=== PATIENT | female | born 1930 | race Caucasian/White ===

== ENCOUNTER 2018-10-11 15:43 | Observation (INO) ==
[2018-10-11] MEDS ORDERED: VANCOMYCIN HCL 1 GM VIAL ONE (16:39)
[2018-10-11] MEDS ORDERED: NS 250 ML IV 250 ML IV ONE (16:39)
[2018-10-11] MEDS ORDERED: ATARAX TAB 25 MG PO ONE (16:40)
[2018-10-11] MEDS: VANCOMYCIN HCL 1 GM VIAL 1 G in D5W 250 ML IV 250 ML IV SCH ×2 (16:52→21:23)
[2018-10-11] MEDS: ATARAX TAB 25 MG PO PRN (16:52)
--- NOTE | 2018-10-11 17:43 | RAD ---
HISTORY: Allergic reaction. Study: Portable chest. Comparison: Chest x-ray dated September 17, 2018. Findings: Study limited secondary to the lung apices off the field of view The trachea is midline. The cardiac silhouette is unremarkable. Calcified mediastinal/hilar lymph nodes and calcified bilateral pulmonary nodules consistent with old granulomatous disease. Chronic emphysematous changes. No obvious focal consolidation, pleural effusion, or pneumothorax. The bony thorax is unremarkable. IMPRESSION: No acute cardiopulmonary disease on this limited study. Reported By:
[2018-10-11 17:59] VITALS: BMI 27.8
[2018-10-11 18:49] LABS: BILIRUBIN,URINE NEGATIVE (NEGATIVE); BLOOD/HEMOGLOBIN,URINE 2+ (NEGATIVE); GLUCOSE, URINE NEGATIVE (NEGATIVE); KETONES,URINE NEGATIVE (NEGATIVE); LEUKOCYTE ESTERASE ,URINE NEGATIVE (NEGATIVE); NITRITES,URINE NEGATIVE (NEGATIVE); PROTEIN,URINE NEGATIVE (NEGATIVE); UROBILINOGEN,URINE NORMAL (NORMAL)
[2018-10-11 18:58] LABS: APPEARANCE,URINE CLEAR (CLEAR); COLOR,URINE YELLOW (YELLOW); RBC,URINE 0-2 /HPF (NONE SEEN); SQUAMOUS EPITHELIAL CELL,UR FEW /HPF (NEGATIVE)
[2018-10-11 18:59] LABS: BACTERIA,URINE NEGATIVE /HPF (NEGATIVE)
[2018-10-12] MEDS: ATARAX TAB 25 MG PO PRN ×2 (01:00→11:10)
[2018-10-12] MEDS ORDERED: ATARAX TAB 25 MG PO ONE (02:25)
[2018-10-12 06:17] LABS: BASOPHILS # (AUTO) 0.1 X10^3/uL (0.0-0.1); BASOPHILS % (AUTO) 0.7 % (0.2-1.0); EOSINOPHILS # (AUTO) 0.1 x10^3/uL (0.0-0.2); HEMOGLOBIN 12.3 g/dL (12.0-16.0); LYMPHOCYTES # (AUTO) 3.2 X10^3/uL (1.3-2.9); MEAN CORPUSCULAR HEMOGLOBIN 35.1 pg (27.0-34.0); MEAN CORPUSCULAR HGB CONC 34.3 g/dL (33.0-35.0); MEAN CORPUSCULAR VOLUME 102.3 fL (80.0-100.0); MEAN PLATELET VOLUME 8.2 fL (7.4-11.0); MONOCYTES # (AUTO) 0.6 x10^3/uL (0.3-0.8); MONOCYTES % (AUTO) 5.8 % (0.0-13.0); NEUTROPHILS % (AUTO) 60.5 % (42.0-75.0); PLATELET COUNT 195 X10^3/uL (150.0-450.0); RED BLOOD COUNT 3.52 X10^6/uL (3.5-5.4); RED CELL DISTRIBUTION WIDTH 14.6 % (11.6-16.5); WHITE BLOOD COUNT 9.9 X10^3/uL (3.6-10.0)
[2018-10-12 06:59] LABS: ALANINE AMINOTRANSFERASE 18 Units/L (12-78); ALBUMIN 3.5 g/dL (3.4-5.0); ALKALINE PHOSPHATASE 93 Units/L (46-116); ASPARTATE AMINO TRANSFERASE 24 Units/L (15-37); BLOOD UREA NITROGEN 29 mg/dL (7-18); CALCIUM 9.4 mg/dL (8.5-10.1); CARBON DIOXIDE 28.2 mmol/L (21-32); CHLORIDE 108 mmol/L (98-107); CREATININE 1.06 mg/dL (0.55-1.02); SODIUM 144 mmol/L (136-145); TOTAL PROTEIN 7.4 g/dL (6.4-8.2); eGFR NON BLACK RACES 52 (>60)
[2018-10-12] MEDS ORDERED: NORCO 5/325 MG TAB ONE (10:07)
[2018-10-12] MEDS: VANCOMYCIN HCL 1 GM VIAL 1 G in D5W 250 ML IV 250 ML IV SCH (10:14)
[2018-10-12] MEDS ORDERED: NORCO 5/325 MG TAB PO ONE (10:30)
[2018-10-12 12:26] VITALS: BP 143/63
--- NOTE | 2018-10-23 18:58 | DR.CARTERS ---
Short Stay Summary - Short Stay Summary for: Short Stay Summary for Date of:: 10/11/18 - Admission Date Date of Admission: 10/11/18 - Discharge Date Discharge Date: 10/12/18 - Admission Diagnoses (1) Cellulitis Status: Acute (2) Rash Status: Acute - Hospital Course Hospital Course: THE PATIENT IS AN 8/6YO FEMALE RESIDENT OF [place] WHO WAS NOTED TO HAVE RASH WITH ERYTHEMA TO CHEST AND BILATERAL ARMS. COMPLAINED OF ITCHING AT SITE. PATIENT ADMITTED FOR IV ANTIBIOTICS. VANCOMYCIN GIVEN. IV DID INFILTRATE AND PATIENT REQUESTED PO ANTIBIOTIC. PATIENT LABS WERE STABLE. PATIENT DISCHARGED BACK TO [place]. - Discharge Medications Discharge Medications: Home Medication List Refresh Tears 1 drp OPHTHALMIC (EYE) TID 10/11/18 [History] alprazolam [Xanax] 0.25 mg PO DAILY 10/11/18 [History] cyanocobalamin (vitamin B-12) 1,000 mcg IM QMONTH 10/11/18 [History] fluticasone [Flonase Allergy Relief] 1 spray INTRANASAL QDAY 10/11/18 [History] gabapentin 100 mg PO QDAY 10/11/18 [History] gabapentin 200 mg PO HS 10/11/18 [History] hydroxyzine HCl 25 mg PO TID 10/11/18 [History] isosorbide mononitrate 5 mg PO BID 10/11/18 [History] lactulose [Constulose] 15 ml PO DAILY 10/11/18 [History] levothyroxine [Synthroid] 75 mcg PO QDAY 10/11/18 [History] loratadine [Claritin] 10 mg PO QDAY 10/11/18 [History] melatonin 10 mg PO HS 10/11/18 [History] trazodone 25 mg PO HS 10/11/18 [History] hydrocodone-acetaminophen [[place]] 1 tab PO TID PRN #30 tab 10/12/18 [Rx] mineral oil-hydrophil petrolat [Aquaphor] 1 applic TOPICAL QID 14 Days g 10/12/18 [Rx] mupirocin calcium [Bactroban] 1 applic TOPICAL QID 14 Days g 10/12/18 [Rx] Prescriptions: hydrocodone-acetaminophen [[place]] JUAN NUNEZ mineral oil-hydrophil petrolat [Aquaphor] RABIA RICO mupirocin calcium [Bactroban] RABIA RICO - Discharge Plan Disposition: 03 XFER SNF Condition: Stable Prescriptions: hydrocodone-acetaminophen [[place]] 1 tab PO TID PRN #30 tab PRN Reason: Pain mineral oil-hydrophil petrolat [Aquaphor] 1 applic TOPICAL QID 14 Days g mupirocin calcium [Bactroban] 1 applic TOPICAL QID 14 Days g - Follow up/Referrals Follow up/Referrals: [facility] [Outside] JUAN NUNEZ [Primary Care Provider] - - Instructions
== END 2018-10-12 12:30 ==
LOC: MED/SURG 16:25 → INTOOBSV 16:25
PROVIDERS: ADMIT Internal Medicine; ATTEND Internal Medicine
DX: R21 Rash and other nonspecific skin eruption; L03.90 Cellulitis, unspecified; Z79.899 Other long term (current) drug therapy; L01.09 Other impetigo
CPT/HCPCS: 36415; 71010; 71045; 80053; 81001; 85025; 87086; 96367; 96374; 99217; G0378; J3370; J7050; J7060

== ENCOUNTER 2019-10-20 21:10 | Inpatient (IN) ==
[~2019-10-20 21:10] MED LIST: MONOKET or IMDUR PO ONE
--- NOTE | 2019-10-20 21:32 | DR.WEAKNES ---
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 - Reviewed Nurses Notes Reviewed: Yes - Source History Provided: Patient, Senior Living - Mode of Arrival Mode of Arrival: Stretcher - Timing Onset of Chief Complaint: 10/20/19 Since onset, symptoms are:: Unchanged Symptom Onset: Unknown Onset of Symptoms Start Date: 10/20/19 - Duration Duration: Constant Duration: Hours - Context Onset: Spontaneous Symptoms: Weakness, Slurred Speech History of: None Stroke Symptoms: None - Location Weakness Location: Left, Facial PMH - PMH Past Medical History: Yes Past Medical History: Anemia, Anxiety, Hypertension, Hypothyroidism Past Surgical History: Yes Surgical History: Appendectomy, Cholecystectomy, Hysterectomy - Family History History of Family Medical Conditions: No Family Medical History: Heart Failure, Hypertension - Social History Type of Tobacco Use: None (Hx fibromyalgia) Do you use any recreational Drugs:: No - infectious screening In the last 2 months have you had wt loss of >10#?: NO Have you had fever, night sweats or hemotysis?: No Have you traveled outside the country in the last 6 months?: No Isolation: Standard ROS - Review of Systems Constitutional: Weakness (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) Eyes: No Symptoms Reported ENTM: See HPI Respiratoy: Non-Productive Cough Cardiovascular: No Symptoms Reported Gastrointestinal/Abdominal: No Symptoms Reported Genitourinary: No Symptoms Reported Neurological: Speech Problem, Other (left community service patrol officer weakness) Musculoskeletal: No Symptoms Reported Integumentary: No Symptoms Reported Hematologic/Lymphatic: No Symptoms Reported Endocrine: No Symptoms Reported Psychiatric: Anxiety PE - General Limitations: Physical Limitation General Appearance: Alert, In No Apparent Distress - Head Head Exam: Normal Inspection - Eyes Eye exam: Normal Appearance, EOMI Eyelids: Normal Inspection: Bilateral Pupils: Regular, Round: Bilateral Sclera/Conjunctival: Normal Inspection: Bilateral - ENT Mouth Exam: Other (facial droop) Throat Exam: Normal Inspection - Neck Neck Exam: Normal Inspection - Chest Chest Inspection: Normal Inspection - Respiratory Respiratory Exam: Normal Lung Sounds Bilat. negative: Accessory Muscle Use Respiratory Exam: Bilateral Clear to Auscultation - Cardiovascular Cardiovascular Exam: Regular Rate - Abdominal Exam Abdominal Exam: Normal Inspection, Normal Bowel Sounds, Soft, Hernia - Extremities Extremities Exam: Normal Inspection, Full ROM - Back Back Exam: Normal Inspection - Neurologic Neurological Exam: Alert, Other (facial droop) Patient Oriented To: Person Speech: Other (speech difficulty) Cranial Nerve Exam: EOM Function (II, III, IV, ): Normal, Gag reflex (XI): Normal - Psychiatric Psychiatric Exam: Depressed, Anxious - Skin Skin Exam: Intact, Normal Color - Vital Signs Vitals: Pulse Rate 87 Respiratory Rate 12 Blood Pressure [Left Arm] 109/72 Blood Pressure 110/58 O2 Sat by Pulse Oximetry 99 Course - Consultation Called: 23:20 Call Returned: 23:20 Consultation Comments: Case discusssed with DR. Santana betts for IVF and MRI. ROR - Labs Reviewed Result Diagrams: 10/20/19 21:51 10/21/19 05:30 - XRAY XRAY Interpreted by: Radiologist (Chest: CMG and findings consistent with COPD) XRAY Findings: CT head: diffuse cerebral atrophy, right maxillary sinusitus - EKG Compared to prior EKG Dated: 10/18/19 (inchanged) Rate: 84 [place]: Normal Rhythm: NSR Hypertrophy: None ST: Nonsp (artifact in 3 leads) - Labs Reviewed Laboratory: WBC 11.3 X10^3/uL (3.6-10.0) H 10/20/19 21:51 RBC 3.28 X10^6/uL (3.5-5.4) L 10/20/19 21:51 Hgb 11.2 g/dL (12.0-16.0) L 10/20/19 21:51 Hct 33.7 % (36.0-47.0) L 10/20/19 21:51 MCV 102.7 fL (80.0-100.0) H 10/20/19 21:51 MCH 34.1 pg (27.0-34.0) H 10/20/19 21:51 MCHC 33.2 g/dL (33.0-35.0) 10/20/19 21:51 RDW 16.4 % (11.6-16.5) 10/20/19 21:51 Plt Count 97 X10^3/uL (150.0-450.0) L 10/20/19 21:51 Plt Count Comment Decreased (ADEQUATE) A 10/20/19 21:51 MPV 11.3 fL (7.4-11.0) H 10/20/19 21:51 Neut % (Auto) 74.9 % (42.0-75.0) 10/20/19 21:51 Lymph % (Auto) 11.2 % (21.0-51.0) L 10/20/19 21:51 [place] % (Auto) 5.5 % (0.0-13.0) 10/20/19 21:51 Eos % (Auto) 8.1 % (0.9-2.9) H 10/20/19 21:51 Baso % (Auto) 0.3 % (0.2-1.0) 10/20/19 21:51 Neut # (Auto) 8.5 x10^3/uL (2.2-4.8) H 10/20/19 21:51 Lymph # (Auto) 1.3 X10^3/uL (1.3-2.9) 10/20/19 21:51 [place] # (Auto) 0.6 x10^3/uL (0.3-0.8) 10/20/19 21:51 Eos # (Auto) 0.9 x10^3/uL (0.0-0.2) H 10/20/19 21:51 Baso # (Auto) 0.0 X10^3/uL (0.0-0.1) 10/20/19 21:51 Absolute Nucleated RBC 0.1 /100WBC 10/20/19 21:51 Total Counted 100 10/20/19 21:51 Neutrophils % (Manual) 68 % (39-76) 10/20/19 21:51 Band Neutrophils % 15 % (0-10) H 10/20/19 21:51 Lymphocytes % (Manual) 9 % (13-43) L 10/20/19 21:51 Monocytes % (Manual) 8 % (4-9) 10/20/19 21:51 Plt Morphology Comment Normal (NORMAL) 10/20/19 21:51 RBC Morphology Normal (NORMAL) 10/20/19 21:51 PT 14.0 SECONDS (11.8-14.3) 10/20/19 21:51 INR Target Range - 10/20/19 21:51 INR 1.12 (0.8-1.3) 10/20/19 21:51 APTT 58.5 SECONDS (22.9-36.5) H 10/20/19 21:51 PTT Comment - 10/20/19 21:51 Sodium 139 mmol/L (136-145) 10/20/19 21:51 Corrected Sodium TNP 10/20/19 21:51 Potassium 5.5 mmol/L (3.5-5.1) H 10/20/19 21:51 Chloride 102 mmol/L (98-107) 10/20/19 21:51 Carbon Dioxide 26.4 mmol/L (21-32) 10/20/19 21:51 BUN 80 mg/dL (7-18) H 10/20/19 21:51 Creatinine 4.84 mg/dL (0.55-1.02) H 10/20/19 21:51 Est GFR (MDRD) Af Amer 11 (>60) L 10/20/19 21:51 Est GFR (MDRD) Non-Af 9 (>60) L 10/20/19 21:51 Glucose 102 mg/dL (65-99) H 10/20/19 21:51 Calcium 8.5 mg/dL (8.5-10.1) 10/20/19 21:51 Corrected Calcium 9.8 mg/dL (8.5-10.1) 10/20/19 21:51 Total Bilirubin 0.80 mg/dL (0.2-1.0) 10/20/19 21:51 AST 72 Units/L (15-37) H 10/20/19 21:51 ALT 23 Units/L (12-78) 10/20/19 21:51 Alkaline Phosphatase 170 Units/L (46-116) H 10/20/19 21:51 Total Protein 6.6 g/dL (6.4-8.2) 10/20/19 21:51 Albumin 2.4 g/dL (3.4-5.0) L 10/20/19 21:51 Globulin 4.2 g/dL (2.5-4.5) 10/20/19 21:51 Albumin/Globulin Ratio 0.6 Ratio (1.1-2.1) L 10/20/19 21:51 Opioid - Opioid Risk Tool Age (Emanuel box if 16-45): No History of Preadolescent Sexual Abuse: No Total: 0 Total Score Risk Category: Low Risk - Diagnosis Discharge Problem: CVA (cerebral vascular accident) Qualifiers: CVA mechanism: unspecified Qualified Code(s): I63.9 - Cerebral infarction, unspecified - Discharge Plan Disposition: 09 ADMITTED INPATIENT Condition: Stable
[2019-10-20 21:57] LABS: BASOPHILS % (AUTO) 0.3 % (0.2-1.0); EOSINOPHILS # (AUTO) 0.9 x10^3/uL (0.0-0.2); EOSINOPHILS % (AUTO) 8.1 % (0.9-2.9); HEMATOCRIT 33.7 % (36.0-47.0); HEMOGLOBIN 11.2 g/dL (12.0-16.0); LYMPHOCYTES # (AUTO) 1.3 X10^3/uL (1.3-2.9); LYMPHOCYTES % (AUTO) 11.2 % (21.0-51.0); MEAN CORPUSCULAR HEMOGLOBIN 34.1 pg (27.0-34.0); MEAN CORPUSCULAR HGB CONC 33.2 g/dL (33.0-35.0); MEAN CORPUSCULAR VOLUME 102.7 fL (80.0-100.0); MEAN PLATELET VOLUME 11.3 fL (7.4-11.0); MONOCYTES # (AUTO) 0.6 x10^3/uL (0.3-0.8); MONOCYTES % (AUTO) 5.5 % (0.0-13.0); NEUTROPHILS # (AUTO) 8.5 x10^3/uL (2.2-4.8); NEUTROPHILS % (AUTO) 74.9 % (42.0-75.0); PLATELET COUNT 97 X10^3/uL (150.0-450.0); RED BLOOD COUNT 3.28 X10^6/uL (3.5-5.4); RED CELL DISTRIBUTION WIDTH 16.4 % (11.6-16.5); WHITE BLOOD COUNT 11.3 X10^3/uL (3.6-10.0)
[2019-10-20 22:10] LABS: ALANINE AMINOTRANSFERASE 23 Units/L (12-78); ALBUMIN 2.4 g/dL (3.4-5.0); ALKALINE PHOSPHATASE 170 Units/L (46-116); ASPARTATE AMINO TRANSFERASE 72 Units/L (15-37); BLOOD UREA NITROGEN 80 mg/dL (7-18); CALCIUM 8.5 mg/dL (8.5-10.1); CARBON DIOXIDE 26.4 mmol/L (21-32); CHLORIDE 102 mmol/L (98-107); COR CA(FOR HYPOALB) 9.8 mg/dL (8.5-10.1); CREATININE 4.84 mg/dL (0.55-1.02); SODIUM 139 mmol/L (136-145); TOTAL PROTEIN 6.6 g/dL (6.4-8.2); eGFR NON BLACK RACES 9 (>60)
[2019-10-20 22:20] LABS: BAND NEUTROPHILS % 15 % (0-10); PLATELET MORPHOLOGY COMMENT NORMAL (NORMAL)
--- NOTE | 2019-10-20 22:28 | CT ---
HISTORYspeech difficulty, left manager psychology weaknessSTUDYBRAIN W/O [id number]/27/2019TECHNIQUEMultiple helical images of the brain from the vertex to the occiput were obtained. Coronal and sagittal reformats were performed. Dose reduction techniques including Automated Exposure Control (AEC) and adjustment of mA and kV were utilized.FINDINGSThere is moderate diffuse cerebral cortical atrophy with bilateral periventricular and deep white matter hypoattenuation, findings are nonspecific; however, most likely represent sequela of chronic microvascular disease.[No acute intraparenchymal hemorrhage or mass can be identified.] [No extra-axial fluid collections are seen.] [No alteration in the attenuation of the brain parenchyma can be identified to suggest acute or subacute ischemic change.] [The ventricular system is symmetric and nondilated.] [The extracranial structures are grossly unremarkable.]Moderate right maxillary sinus mucosal thickening with inspissated secretions.IMPRESSIONNo acute intracranial process identified.Stable moderate diffuse cerebral cortical atrophy with bilateral periventricular and deep white matter hypoattenuation, findings are nonspecific; however, most likely represent sequela of chronic microvascular disease.Moderate right maxillary sinus mucosal disease likely in setting of chronic sinusitis.Electronically signed by: EDOUARD WU (Oct 20, 2019 22:26:56)
[2019-10-20] MEDS ORDERED: NS 500 ML IV 500 ML IV ONE ×2 (22:41→23:08)
[2019-10-20 23:38] LABS: BILIRUBIN,URINE 1+ (NEGATIVE); BLOOD/HEMOGLOBIN,URINE 5+ (NEGATIVE); GLUCOSE, URINE NEGATIVE (NEGATIVE); KETONES,URINE NEGATIVE (NEGATIVE); LEUKOCYTE ESTERASE ,URINE 1+ (NEGATIVE); NITRITES,URINE NEGATIVE (NEGATIVE); PROTEIN,URINE 1+ (NEGATIVE); UROBILINOGEN,URINE 1+ (NORMAL)
[2019-10-20 23:45] LABS: APPEARANCE,URINE CLEAR (CLEAR); BACTERIA,URINE NEGATIVE /HPF (NEGATIVE); COLOR,URINE AMBER (YELLOW); RBC,URINE 30-50 /HPF (0-3); SQUAMOUS EPITHELIAL CELL,UR RARE /HPF (NEGATIVE)
[2019-10-21 01:35] VITALS: BMI 27.1
[2019-10-21] MEDS ORDERED: PHARMACY CONSULT LTC MEDICATIONS XX SCH (02:00)
--- NOTE | 2019-10-21 03:02 | RAD ---
HISTORYcough, lethargic, hypotensionSTUDYCHEST, 1 [id number]/27/2019FINDINGSThe trachea is midline. The cardiac silhouette is image enlarged, unchanged. Chronic interstitial opacities are noted. Calcified granuloma noted within both lung bases. No pleural effusion or pneumothorax.[ ]IMPRESSIONNo change from prior examination demonstrating persistent cardiomegaly and chronic interstitial lung changes without acute airspace disease or CHF.Electronically signed by: EDOUARD WU (Oct 21, 2019 03:00:47)
[2019-10-21 06:34] LABS: ALANINE AMINOTRANSFERASE 25 Units/L (12-78); ALBUMIN 2.1 g/dL (3.4-5.0); ALKALINE PHOSPHATASE 143 Units/L (46-116); ASPARTATE AMINO TRANSFERASE 86 Units/L (15-37); BLOOD UREA NITROGEN 84 mg/dL (7-18); CARBON DIOXIDE 25.6 mmol/L (21-32); CHLORIDE 104 mmol/L (98-107); COR CA(FOR HYPOALB) 9.5 mg/dL (8.5-10.1); CREATININE 4.78 mg/dL (0.55-1.02); SODIUM 141 mmol/L (136-145); TOTAL PROTEIN 5.9 g/dL (6.4-8.2); eGFR NON BLACK RACES 9 (>60)
--- NOTE | 2019-10-21 09:16 | DR.H&P ---
H&P History & Physical for Day of: H&P Date: 10/21/19 Chief Complaint Chief Complaint: Lethargy, Left facial droop Allergies Allergies Allergy/AdvReac Type Severity Reaction Status Date / Time ceftriaxone [From Rocephin] Allergy Verified 10/21/19 01:51 cephalexin [From Keflex] Allergy Verified 12/10/18 19:05 Cephalosporins Allergy Verified 10/21/19 01:51 levofloxacin [From Levaquin] Allergy Verified 12/10/18 19:05 Penicillins Allergy Verified 12/10/18 19:05 Sulfa (Sulfonamide Allergy Verified 12/10/18 19:05 Antibiotics) [SULFA] History of Present Illness History of Present Illness: Pt is a 89 yo f presenting from alf after being noticed by staff that she was lethargic, with slurred speech, left facial droop, left sided weakness, AOx1 to person, that was also noted in ED. Initial CT did not have any acute findings. Labs:Wbc 12.7, Hgb 11.2, Plt 156, K 5.5, Cr 4.84, AST 72, CXR:no acute findings, UA not c/w infection. Will get MRI, Echo, Carotid Doppler, PT/OT/ST to evaluate for possible stroke. Pt also has acute on chronic renal failure, continue IVF. Monitor electrolytes. Past Medical History Past Medical History: Anemia, Anxiety, Hypertension and Hypothyroidism Past Surgical History Surgical History: Appendectomy, Cholecystectomy and Hysterectomy Family History Family Medical History: Heart Failure and Hypertension Social History Type of Tobacco Use: None (Hx fibromyalgia) Alcohol Use: None Drug Use: None Medications Home Medications: ceftriaxone [From Rocephin] Allergy (Verified 10/21/19 01:51) cephalexin [From Keflex] Allergy (Verified 12/10/18 19:05) Cephalosporins Allergy (Verified 10/21/19 01:51) levofloxacin [From Levaquin] Allergy (Verified 12/10/18 19:05) Penicillins Allergy (Verified 12/10/18 19:05) Sulfa (Sulfonamide Antibiotics) [SULFA] Allergy (Verified 12/10/18 19:05) CONTINUE taking the following medications azelastine 1 spray INTRANASAL TID 10/21/19 [History] diphenhydramine HCl [Benadryl Allergy] 25 mg PO Q24H PRN 10/21/19 [History] hydrocodone-acetaminophen [[place]] 1 tab PO Q8H PRN 10/21/19 [History] levothyroxine 88 mcg PO DAILY 10/21/19 [History] mirabegron [Myrbetriq] 25 mg PO DAILY 10/21/19 [History] montelukast [Singulair] 10 mg PO DAILY 10/21/19 [History] multivitamin with minerals [Multiple Vitamin-Minerals] 1 tab PO BID 10/21/19 [History] pregabalin [Lyrica] 100 mg PO BID 10/21/19 [History] sertraline 25 mg PO DAILY 10/21/19 [History] Labs Result Diagrams: 10/20/19 21:51 10/21/19 05:30 Labs: Laboratory WBC 11.3 X10^3/uL (3.6-10.0) H 10/20/19 21:51 RBC 3.28 X10^6/uL (3.5-5.4) L 10/20/19 21:51 Hgb 11.2 g/dL (12.0-16.0) L 10/20/19 21:51 Hct 33.7 % (36.0-47.0) L 10/20/19 21:51 MCV 102.7 fL (80.0-100.0) H 10/20/19 21:51 MCH 34.1 pg (27.0-34.0) H 10/20/19 21:51 MCHC 33.2 g/dL (33.0-35.0) 10/20/19 21:51 RDW 16.4 % (11.6-16.5) 10/20/19 21:51 Plt Count 97 X10^3/uL (150.0-450.0) L 10/20/19 21:51 Plt Count Comment Decreased (ADEQUATE) A 10/20/19 21:51 MPV 11.3 fL (7.4-11.0) H 10/20/19 21:51 Neut % (Auto) 74.9 % (42.0-75.0) 10/20/19 21:51 Lymph % (Auto) 11.2 % (21.0-51.0) L 10/20/19 21:51 [place] % (Auto) 5.5 % (0.0-13.0) 10/20/19 21:51 Eos % (Auto) 8.1 % (0.9-2.9) H 10/20/19 21:51 Baso % (Auto) 0.3 % (0.2-1.0) 10/20/19 21:51 Neut # (Auto) 8.5 x10^3/uL (2.2-4.8) H 10/20/19 21:51 Lymph # (Auto) 1.3 X10^3/uL (1.3-2.9) 10/20/19 21:51 [place] # (Auto) 0.6 x10^3/uL (0.3-0.8) 10/20/19 21:51 Eos # (Auto) 0.9 x10^3/uL (0.0-0.2) H 10/20/19 21:51 Baso # (Auto) 0.0 X10^3/uL (0.0-0.1) 10/20/19 21:51 Absolute Nucleated RBC 0.1 /100WBC 10/20/19 21:51 Total Counted 100 10/20/19 21:51 Neutrophils % (Manual) 68 % (39-76) 10/20/19 21:51 Band Neutrophils % 15 % (0-10) H 10/20/19 21:51 Lymphocytes % (Manual) 9 % (13-43) L 10/20/19 21:51 Monocytes % (Manual) 8 % (4-9) 10/20/19 21:51 Plt Morphology Comment Normal (NORMAL) 10/20/19 21:51 RBC Morphology Normal (NORMAL) 10/20/19 21:51 PT 14.0 SECONDS (11.8-14.3) 10/20/19 21:51 INR Target Range - 10/20/19 21:51 INR 1.12 (0.8-1.3) 10/20/19 21:51 APTT 58.5 SECONDS (22.9-36.5) H 10/20/19 21:51 PTT Comment - 10/20/19 21:51 Sodium 141 mmol/L (136-145) 10/21/19 05:30 Corrected Sodium TNP 10/21/19 05:30 Potassium 4.7 mmol/L (3.5-5.1) 10/21/19 05:30 Chloride 104 mmol/L (98-107) 10/21/19 05:30 Carbon Dioxide 25.6 mmol/L (21-32) 10/21/19 05:30 BUN 84 mg/dL (7-18) H 10/21/19 05:30 Creatinine 4.78 mg/dL (0.55-1.02) H 10/21/19 05:30 Est GFR (MDRD) Af Amer 11 (>60) L 10/21/19 05:30 Est GFR (MDRD) Non-Af 9 (>60) L 10/21/19 05:30 Glucose 82 mg/dL (65-99) 10/21/19 05:30 Calcium 8.0 mg/dL (8.5-10.1) L 10/21/19 05:30 Corrected Calcium 9.5 mg/dL (8.5-10.1) 10/21/19 05:30 Total Bilirubin 0.70 mg/dL (0.2-1.0) 10/21/19 05:30 AST 86 Units/L (15-37) H 10/21/19 05:30 ALT 25 Units/L (12-78) 10/21/19 05:30 Alkaline Phosphatase 143 Units/L (46-116) H 10/21/19 05:30 Total Protein 5.9 g/dL (6.4-8.2) L 10/21/19 05:30 Albumin 2.1 g/dL (3.4-5.0) L 10/21/19 05:30 Globulin 3.8 g/dL (2.5-4.5) 10/21/19 05:30 Albumin/Globulin Ratio 0.6 Ratio (1.1-2.1) L 10/21/19 05:30 Specimen Type Catherized urine 10/20/19 23:25 Urine Color M[place] (YELLOW) 10/20/19 23:25 Urine Appearance Clear (CLEAR) 10/20/19 23:25 Urine pH 5.0 (5.0 - 8.0) 10/20/19 23:25 Ur Specific [place] 1.015 (1.000-1.030) 10/20/19 23:25 Urine Protein 1+ (NEGATIVE) 10/20/19 23:25 Urine Glucose (UA) Negative (NEGATIVE) 10/20/19 23:25 Urine Ketones Negative (NEGATIVE) 10/20/19 23:25 Urine Occult Blood 5+ (NEGATIVE) 10/20/19 23:25 Urine Nitrite Negative (NEGATIVE) 10/20/19 23:25 Urine Bilirubin 1+ (NEGATIVE) 10/20/19 23:25 Urine Urobilinogen 1+ (NORMAL) 10/20/19 23:25 Ur Leukocyte Esterase 1+ (NEGATIVE) 10/20/19 23:25 Urine RBC 30-50 /HPF (0-3) A 10/20/19 23:25 Urine WBC 0-2 /HPF (0-5) 10/20/19 23:25 Ur Squamous Epith Cells Rare /HPF (NEGATIVE) 10/20/19 23:25 Urine Bacteria Negative /HPF (NEGATIVE) 10/20/19 23:25 Ur Culture Indicated? No/not indicated 10/20/19 23:25 Review of Systems Constitutional: denies Fever and Chills Eyes: No Symptoms Reported ENT: No Symptoms Reported Respiratory: No Symptoms Reported Cardiovascular: No Symptoms Reported Gastrointestinal: No Symptoms Reported Genitourinary: No Symptoms Reported Musculoskeletal: Other (Generalized, hx of fibromyalgia) Skin: No Symptoms Reported Neurological: See HPI, Weakness (Left facial droop), Change in Speech (slurred) and Confusion (AOx1, to person) Physical Exam Vital Signs: Temperature 98.1 F Pulse Rate [Left Brachial] 78 Pulse Rate 87 Respiratory Rate 18 Blood Pressure [Left Arm] 93/54 Blood Pressure 110/58 O2 Sat by Pulse Oximetry 99 Oriented: Person; negative Time and Place Eyes: Normal Ear: Normal Nose: Normal Respiratory: Clear Throughout Cardiovascular: Normal : Normal Auscultation: Bowel Sounds: Normal Palpation: Normal Tenderness: Normal Skin: Normal Musculoskeletal: Left (LUE:strength 4/5 ) Psychiatric: Normal Mood Description: Calm Speech Pattern: Slurred Assessment/Plan (1) TIA (transient ischemic attack): Status: Acute Plan: Follow up Echo, Carotid Doppler, MRI. PT/OT/ST (2) Acute on chronic renal failure: Status: Acute Plan: Cr(BL 1.1):4.84 GFR:9 Continue IVF (3) Hyperkalemia: Status: Acute Plan: K:5.5>4.7
[2019-10-21] MEDS: TYLENOL 325 MG TAB PO PRN ×2 (11:15→20:55)
[2019-10-21] MEDS: NS 1000 ML 1,000 ML IV SCH ×2 (11:15→20:54)
[2019-10-21] MEDS: ZOLOFT PO SCH (11:16)
--- NOTE | 2019-10-21 15:48 | MRI ---
HISTORYTIA, SLURRED SPEECH, LT FACIAL DROOPSTUDYBRAIN W/O CONCOMPARISONCT head 10/20/2019TECHNIQUEMultiplanar multi-sequence MRI of the brain was obtained utilizing standard departmental protocol.FINDINGSThe ventricles are mildly enlarged with diffuse mild prominence of the cortical sulci which is unchanged. There are a couple of punctate areas of abnormal signal scattered in the periventricular white matter along the centrum semiovale posteriorly on the right and along the medial aspect of the superior parietal lobe extending, and left cerebellar hemisphere superiorly and laterally on the diffusion-weighted data set. There is no significant edema or mass effect and no intracranial hemorrhage is seen in the areas. The midline structures unremarkable. The vascular structures show normal flow voids. The 7th and 8th nerve complexes are normal size and signal intensity. There is mild mucosal thickening throughout the ethmoid and maxillary sinuses with no air-fluid levels. There are extensive punctate and confluent areas of abnormal signal throughout the periventricular white matter. The midline structures unremarkable.IMPRESSIONSmall punctate areas of acute ischemia scattered along in the deep white matter along the right parietal region and along the left cerebellar hemisphere with no significant edema or mass effect and no intracranial hemorrhage seen.Mild atrophy and moderate chronic microischemic changes throughout the deep white matter.Chronic maxillary and ethmoid sinusitis.Electronically signed by: JUAN JESUS (Oct 21, 2019 15:46:13)
--- NOTE | 2019-10-21 18:30 | VAS ---
CAROTIDCLINICAL INDICATION: tia symptomsPROCEDURE: Pulsed wave and color-flow duplex imaging was utilized to evaluate the extracranial carotid arteries.COMPARISON:NoneFINDINGS:Right carotid:The velocities are as follows:Distal CCA peak systolic velocity 75 cm/sec, ICA peak systolic velocity 130 cm/sec. Flow within the right vertebral and right ECA is directed antegrade.Left carotid:The velocities are as follows:Distal CCA peak systolic velocity 77 cm/sec, ICA peak systolic velocity 125 cm/sec. Flow within the left vertebral and left ECA is directed antegrade.IMPRESSION:1. Mildly increased peak systolic velocity corresponds to a 50-70% diameter stenosis of the right ICA.2. Mildly increased peak systolic velocity corresponds to a 50-70% diameter stenosis of the left ICA.Electronically signed by: NEEMA WHITE (Oct 21, 2019 18:28:34)
[2019-10-21] MEDS: XANAX PO SCH (20:54)
[2019-10-21] MEDS ORDERED: PATIENT'S HOME MEDICATION (Melatonin 10 MG) PO SCH (21:00)
[2019-10-22] MEDS: NS 1000 ML 1,000 ML IV SCH ×4 (05:04→21:05)
[2019-10-22 06:34] LABS: BASOPHILS % (AUTO) 0.4 % (0.2-1.0); EOSINOPHILS # (AUTO) 0.1 x10^3/uL (0.0-0.2); HEMATOCRIT 32.9 % (36.0-47.0); HEMOGLOBIN 10.9 g/dL (12.0-16.0); LYMPHOCYTES # (AUTO) 1.3 X10^3/uL (1.3-2.9); LYMPHOCYTES % (AUTO) 12.1 % (21.0-51.0); MEAN CORPUSCULAR HEMOGLOBIN 33.9 pg (27.0-34.0); MEAN CORPUSCULAR HGB CONC 33.3 g/dL (33.0-35.0); MEAN PLATELET VOLUME 11.4 fL (7.4-11.0); MONOCYTES # (AUTO) 0.8 x10^3/uL (0.3-0.8); MONOCYTES % (AUTO) 7.6 % (0.0-13.0); NEUTROPHILS # (AUTO) 8.3 x10^3/uL (2.2-4.8); NEUTROPHILS % (AUTO) 78.9 % (42.0-75.0); PLATELET COUNT 81 X10^3/uL (150.0-450.0); RED BLOOD COUNT 3.23 X10^6/uL (3.5-5.4); RED CELL DISTRIBUTION WIDTH 16.6 % (11.6-16.5); WHITE BLOOD COUNT 10.5 X10^3/uL (3.6-10.0)
[2019-10-22 06:51] LABS: ALANINE AMINOTRANSFERASE 26 Units/L (12-78); ALBUMIN 2.1 g/dL (3.4-5.0); ALKALINE PHOSPHATASE 146 Units/L (46-116); ASPARTATE AMINO TRANSFERASE 80 Units/L (15-37); BLOOD UREA NITROGEN 97 mg/dL (7-18); CALCIUM 8.2 mg/dL (8.5-10.1); CARBON DIOXIDE 22.4 mmol/L (21-32); CHLORIDE 104 mmol/L (98-107); COR CA(FOR HYPOALB) 9.7 mg/dL (8.5-10.1); CREATININE 3.87 mg/dL (0.55-1.02); SODIUM 140 mmol/L (136-145); TOTAL PROTEIN 6.2 g/dL (6.4-8.2); eGFR NON BLACK RACES 12 (>60)
[2019-10-22] MEDS ORDERED: PATIENT'S HOME MEDICATION (Mirabegron [Myrbetriq] 25 MG) PO SCH (09:00)
[2019-10-22] MEDS: SYNTHROID 88 mcg TAB PO SCH (09:41)
[2019-10-22] MEDS: ZOLOFT PO SCH (09:41)
[2019-10-22] MEDS: NORCO 5/325 MG TAB PO PRN ×2 (11:04→21:06)
--- NOTE | 2019-10-22 12:03 | PCM.PROG ---
Progress Note Progress Note for Day of Date of Exam: 10/22/19 Subjective Subjective: Pt is a 89 yo f admitted for acute CVA after having TIA event that showed on MRI as small punctate areas of acute ischemia in R parietal and L cerebellar hemisphere. This morning she is complaining of back pain. She had a fall prior to admission and has ecchymosis of right upper back. Will get XR today to evaluate. Will place patient on telemetry and order PT/OT/ST to evaluate today. Carotid U/S yesterday-R ICA AND L ICA 50-70% stenosis. Echo: No wall motion abnormalities. Past Medical Family Social History Past Med/Fam/Surg Hx: No changes since H&P Allergies: Allergies ceftriaxone [From Rocephin] Allergy (Verified 10/21/19 01:51) cephalexin [From Keflex] Allergy (Verified 12/10/18 19:05) Cephalosporins Allergy (Verified 10/21/19 01:51) levofloxacin [From Levaquin] Allergy (Verified 12/10/18 19:05) Penicillins Allergy (Verified 12/10/18 19:05) Sulfa (Sulfonamide Antibiotics) [SULFA] Allergy (Verified 12/10/18 19:05) Review of Systems ROS: No change since H&P Vital Signs and I&O's Vital Signs: Temperature 98.6 F Pulse Rate [Left Brachial] 90 Pulse Rate 87 Respiratory Rate 20 Blood Pressure [Left Arm] 133/61 Blood Pressure 110/58 O2 Sat by Pulse Oximetry 94 Intake and Output: Intake & Output 10/19/19 10/20/19 10/21/19 10/22/19 23:59 23:59 23:59 23:59 Intake Total 840 / 840 0 / 0 Output Total 1000 / 1000 150 / 150 Balance -160 / -160 -150 / -150 Physical Exam Oriented: Time, Person and Place Eyes: Normal Ear: Normal Nose: Normal Respiratory: Normal Cardiovascular: Normal : Normal Auscultation: Bowel Sounds: Normal Tenderness: Normal Skin: Normal Musculoskeletal: Left (LUE:strength 4/5 ) Psychiatric: Normal Mood Description: Calm Speech Pattern: Appropriate and Delayed Laboratory and Diagnostics Result Diagrams: 10/22/19 05:20 10/22/19 05:20 Labs: Laboratory WBC 10.5 X10^3/uL (3.6-10.0) H 10/22/19 05:20 RBC 3.23 X10^6/uL (3.5-5.4) L 10/22/19 05:20 Hgb 10.9 g/dL (12.0-16.0) L 10/22/19 05:20 Hct 32.9 % (36.0-47.0) L 10/22/19 05:20 MCV 102.0 fL (80.0-100.0) H 10/22/19 05:20 MCH 33.9 pg (27.0-34.0) 10/22/19 05:20 MCHC 33.3 g/dL (33.0-35.0) 10/22/19 05:20 RDW 16.6 % (11.6-16.5) H 10/22/19 05:20 Plt Count 81 X10^3/uL (150.0-450.0) L 10/22/19 05:20 Plt Count Comment Decreased (ADEQUATE) A 10/20/19 21:51 MPV 11.4 fL (7.4-11.0) H 10/22/19 05:20 Neut % (Auto) 78.9 % (42.0-75.0) H 10/22/19 05:20 Lymph % (Auto) 12.1 % (21.0-51.0) L 10/22/19 05:20 [place] % (Auto) 7.6 % (0.0-13.0) 10/22/19 05:20 Eos % (Auto) 1.0 % (0.9-2.9) 10/22/19 05:20 Baso % (Auto) 0.4 % (0.2-1.0) 10/22/19 05:20 Neut # (Auto) 8.3 x10^3/uL (2.2-4.8) H 10/22/19 05:20 Lymph # (Auto) 1.3 X10^3/uL (1.3-2.9) 10/22/19 05:20 [place] # (Auto) 0.8 x10^3/uL (0.3-0.8) 10/22/19 05:20 Eos # (Auto) 0.1 x10^3/uL (0.0-0.2) 10/22/19 05:20 Baso # (Auto) 0.0 X10^3/uL (0.0-0.1) 10/22/19 05:20 Absolute Nucleated RBC 0.1 /100WBC 10/22/19 05:20 Total Counted 100 10/20/19 21:51 Neutrophils % (Manual) 68 % (39-76) 10/20/19 21:51 Band Neutrophils % 15 % (0-10) H 10/20/19 21:51 Lymphocytes % (Manual) 9 % (13-43) L 10/20/19 21:51 Monocytes % (Manual) 8 % (4-9) 10/20/19 21:51 Plt Morphology Comment Normal (NORMAL) 10/20/19 21:51 RBC Morphology Normal (NORMAL) 10/20/19 21:51 PT 14.0 SECONDS (11.8-14.3) 10/20/19 21:51 INR Target Range - 10/20/19 21:51 INR 1.12 (0.8-1.3) 10/20/19 21:51 APTT 58.5 SECONDS (22.9-36.5) H 10/20/19 21:51 PTT Comment - 10/20/19 21:51 Sodium 140 mmol/L (136-145) 10/22/19 05:20 Corrected Sodium TNP 10/22/19 05:20 Potassium 4.9 mmol/L (3.5-5.1) 10/22/19 05:20 Chloride 104 mmol/L (98-107) 10/22/19 05:20 Carbon Dioxide 22.4 mmol/L (21-32) 10/22/19 05:20 BUN 97 mg/dL (7-18) H 10/22/19 05:20 Creatinine 3.87 mg/dL (0.55-1.02) H 10/22/19 05:20 Est GFR (MDRD) Af Amer 14 (>60) L 10/22/19 05:20 Est GFR (MDRD) Non-Af 12 (>60) L 10/22/19 05:20 Glucose 103 mg/dL (65-99) H 10/22/19 05:20 Calcium 8.2 mg/dL (8.5-10.1) L 10/22/19 05:20 Corrected Calcium 9.7 mg/dL (8.5-10.1) 10/22/19 05:20 Total Bilirubin 0.50 mg/dL (0.2-1.0) 10/22/19 05:20 AST 80 Units/L (15-37) H 10/22/19 05:20 ALT 26 Units/L (12-78) 10/22/19 05:20 Alkaline Phosphatase 146 Units/L (46-116) H 10/22/19 05:20 Ammonia < 10 umol/L (11-32) L 10/21/19 10:24 Total Protein 6.2 g/dL (6.4-8.2) L 10/22/19 05:20 Albumin 2.1 g/dL (3.4-5.0) L 10/22/19 05:20 Globulin 4.1 g/dL (2.5-4.5) 10/22/19 05:20 Albumin/Globulin Ratio 0.5 Ratio (1.1-2.1) L 10/22/19 05:20 Specimen Type Catherized urine 10/20/19 23:25 Urine Color Mame (YELLOW) 10/20/19 23:25 Urine Appearance Clear (CLEAR) 10/20/19 23:25 Urine pH 5.0 (5.0 - 8.0) 10/20/19 23:25 Ur Specific [place] 1.015 (1.000-1.030) 10/20/19 23:25 Urine Protein 1+ (NEGATIVE) 10/20/19 23:25 Urine Glucose (UA) Negative (NEGATIVE) 10/20/19 23:25 Urine Ketones Negative (NEGATIVE) 10/20/19 23:25 Urine Occult Blood 5+ (NEGATIVE) 10/20/19 23:25 Urine Nitrite Negative (NEGATIVE) 10/20/19 23:25 Urine Bilirubin 1+ (NEGATIVE) 10/20/19 23:25 Urine Urobilinogen 1+ (NORMAL) 10/20/19 23:25 Ur Leukocyte Esterase 1+ (NEGATIVE) 10/20/19 23:25 Urine RBC 30-50 /HPF (0-3) A 10/20/19 23:25 Urine WBC 0-2 /HPF (0-5) 10/20/19 23:25 Ur Squamous Epith Cells Rare /HPF (NEGATIVE) 10/20/19 23:25 Urine Bacteria Negative /HPF (NEGATIVE) 10/20/19 23:25 Ur Culture Indicated? No/not indicated 10/20/19 23:25 Plan (1) CVA (cerebral vascular accident): Status: Acute Qualifiers: CVA mechanism: unspecified Qualified Code(s): I63.9 - Cerebral infarction, unspecified Plan: PT/OT/ST consulted, follow up recommendations. Will optimize medical management. Will start Lipitor, hold starting ASA d/t platelet level. (2) TIA (transient ischemic attack): Status: Acute Plan: Follow up Echo, Carotid Doppler, MRI. PT/OT/ST (3) Acute on chronic renal failure: Status: Acute Plan: Cr(BL 1.1):4.78>3.87; GFR:9>12 Increased IVF NS@150ml/hr Ordered urine studies. (4) Hyperkalemia: Status: Acute Plan: WNL, continue to monitor.
[2019-10-22 13:24] LABS: CREATININE,URINE 147.59 mg/dL (29-226)
--- NOTE | 2019-10-22 14:19 | CT ---
HISTORYBack pain status post fallSTUDYCT lumbar spine without contrastCOMPARISONNoneTECHNIQUEMultiple axial images of the lumbar spine were obtained from the thoracolumbar junction to the sacrum without the administration of IV contrast. Sagittal and coronal reformats were performed and reviewed. Dose reduction techniques including Automated Exposure Control (AEC) and adjustment of mA and kV were utilized.FINDINGSAlignment of the lumbar spine is maintained. No evidence for acute fracture or subluxation can be identified. No central canal compromise by bony osteophyte formation or soft tissue components can be identified. Moderate to advanced degenerative disc disease at the L3-4, L4-5, and L5-S1 level is observed. Significant loss of disc space height is noted at the L5-S1 level. Soft tissue density extending to the central canal is noted to suggest broad-based disc bulge and some degree of central canal stenosis. MRI would better well characterize these findings. The surrounding paraspinous soft tissues are normal in their noncontrasted appearance.IMPRESSIONModerate to advanced degenerative disc disease with significant disc height loss at the L5-S1 level. Some degree of central canal stenosis is suspected due to broad-based disc bulges. MRI would better well characterize these findings. No acute abnormality to suggest fracture subluxation can be identified.Electronically signed by: TIN OLMOS (Oct 22, 2019 14:18:14)
--- NOTE | 2019-10-22 14:21 | CT ---
HISTORYBack pain status post fallSTUDYCT thoracic spine without contrastCOMPARISONNoneTECHNIQUEMultiple axial images of the thoracic spine were obtained from the thoracic inlet to the thoracolumbar junction. Sagittal and coronal reconstructions were performed and reviewed. Dose reduction techniques including Automated Exposure Control (AEC) and adjustment of mA and kV were utilized.FINDINGSAlignment of the thoracic spine is maintained. No evidence for acute cortical disruption or subluxation identified. The posterior elements and central canal appear unremarkable. No significant paraspinal soft tissue injury can be identified. A small left-sided pleural effusion with associated subsegmental atelectasis of the left base is observed. Minimal subsegmental atelectasis of the right base is observed as well.IMPRESSIONA small left-sided pleural effusion with associated subsegmental atelectasis. No acute abnormality the thoracic spine be identified.Electronically signed by: TIN OLMOS (Oct 22, 2019 14:20:23)
[2019-10-22] MEDS: XANAX PO SCH (21:06)
[2019-10-23] MEDS: NS 1000 ML 1,000 ML IV SCH ×3 (03:59→21:01)
[2019-10-23 05:41] LABS: ALANINE AMINOTRANSFERASE 24 Units/L (12-78); ALBUMIN 1.8 g/dL (3.4-5.0); ALKALINE PHOSPHATASE 156 Units/L (46-116); ASPARTATE AMINO TRANSFERASE 75 Units/L (15-37); BLOOD UREA NITROGEN 94 mg/dL (7-18); CALCIUM 8.2 mg/dL (8.5-10.1); CARBON DIOXIDE 19.8 mmol/L (21-32); CHLORIDE 109 mmol/L (98-107); CREATININE 2.76 mg/dL (0.55-1.02); SODIUM 142 mmol/L (136-145); TOTAL PROTEIN 5.7 g/dL (6.4-8.2); eGFR NON BLACK RACES 17 (>60)
[2019-10-23 06:26] LABS: BASOPHILS % (AUTO) 0.3 % (0.2-1.0); EOSINOPHILS # (AUTO) 0.1 x10^3/uL (0.0-0.2); EOSINOPHILS % (AUTO) 0.5 % (0.9-2.9); HEMATOCRIT 31.2 % (36.0-47.0); HEMOGLOBIN 10.4 g/dL (12.0-16.0); LYMPHOCYTES # (AUTO) 1.1 X10^3/uL (1.3-2.9); LYMPHOCYTES % (AUTO) 8.4 % (21.0-51.0); MEAN CORPUSCULAR HEMOGLOBIN 34.1 pg (27.0-34.0); MEAN CORPUSCULAR HGB CONC 33.2 g/dL (33.0-35.0); MEAN CORPUSCULAR VOLUME 102.7 fL (80.0-100.0); MONOCYTES # (AUTO) 0.6 x10^3/uL (0.3-0.8); MONOCYTES % (AUTO) 4.2 % (0.0-13.0); NEUTROPHILS # (AUTO) 11.6 x10^3/uL (2.2-4.8); NEUTROPHILS % (AUTO) 86.6 % (42.0-75.0); PLATELET COUNT 80 X10^3/uL (150.0-450.0); RED BLOOD COUNT 3.04 X10^6/uL (3.5-5.4); RED CELL DISTRIBUTION WIDTH 16.4 % (11.6-16.5); WHITE BLOOD COUNT 13.4 X10^3/uL (3.6-10.0)
[2019-10-23] MEDS: ZOLOFT PO SCH (09:35)
[2019-10-23] MEDS: LIPITOR TAB 20 MG PO SCH (09:35)
[2019-10-23] MEDS: SYNTHROID 88 mcg TAB PO SCH (09:36)
--- NOTE | 2019-10-23 12:49 | PCM.PROG ---
Progress Note Progress Note for Day of Date of Exam: 10/23/19 Subjective Subjective: Pt is a 89 yo f admitted for acute CVA after having TIA event that showed on MRI small punctate areas of acute ischemia in R parietal and L cerebellar hemisphere. This morning she is alert and sitting up in bed. She had a fall prior to admission and has ecchymosis of right upper back, CT of back did not show any fractures. PT/OT/ST was ordered, pt was not cooperative with speech therapy yesterday. Her Cr has been trending down after increasing IVF yesterday. Continue to monitor. Past Medical Family Social History Past Med/Fam/Surg Hx: No changes since H&P Allergies: Allergies ceftriaxone [From Rocephin] Allergy (Verified 10/21/19 01:51) cephalexin [From Keflex] Allergy (Verified 12/10/18 19:05) Cephalosporins Allergy (Verified 10/21/19 01:51) levofloxacin [From Levaquin] Allergy (Verified 12/10/18 19:05) Penicillins Allergy (Verified 12/10/18 19:05) Sulfa (Sulfonamide Antibiotics) [SULFA] Allergy (Verified 12/10/18 19:05) Review of Systems ROS: No change since H&P Vital Signs and I&O's Vital Signs: Temperature 97.4 F Pulse Rate [Left Brachial] 82 Pulse Rate 87 Respiratory Rate 18 Blood Pressure [Left Arm] 107/53 Blood Pressure 110/58 O2 Sat by Pulse Oximetry 98 Intake and Output: Intake & Output 10/20/19 10/21/19 10/22/19 10/23/19 23:59 23:59 23:59 23:59 Intake Total 840 / 840 1270 / 1270 2040 / 2040 Output Total 1000 / 1000 650 / 650 300 / 300 Balance -160 / -160 620 / 620 1740 / 1740 Physical Exam Oriented: Time, Person and Place Eyes: Normal Ear: Normal Nose: Normal Respiratory: Normal Cardiovascular: Normal : Normal Auscultation: Bowel Sounds: Normal Tenderness: Normal Skin: Normal Musculoskeletal: Left (LUE:strength 4/5 ) Psychiatric: Normal Mood Description: Calm Speech Pattern: Unclear Laboratory and Diagnostics Result Diagrams: 10/23/19 04:36 10/23/19 04:36 Labs: Laboratory WBC 13.4 X10^3/uL (3.6-10.0) H 10/23/19 04:36 RBC 3.04 X10^6/uL (3.5-5.4) L 10/23/19 04:36 Hgb 10.4 g/dL (12.0-16.0) L 10/23/19 04:36 Hct 31.2 % (36.0-47.0) L 10/23/19 04:36 MCV 102.7 fL (80.0-100.0) H 10/23/19 04:36 MCH 34.1 pg (27.0-34.0) H 10/23/19 04:36 MCHC 33.2 g/dL (33.0-35.0) 10/23/19 04:36 RDW 16.4 % (11.6-16.5) 10/23/19 04:36 Plt Count 80 X10^3/uL (150.0-450.0) L 10/23/19 04:36 Plt Count Comment Decreased (ADEQUATE) A 10/20/19 21:51 MPV 12.0 fL (7.4-11.0) H 10/23/19 04:36 Neut % (Auto) 86.6 % (42.0-75.0) H 10/23/19 04:36 Lymph % (Auto) 8.4 % (21.0-51.0) L 10/23/19 04:36 [place] % (Auto) 4.2 % (0.0-13.0) 10/23/19 04:36 Eos % (Auto) 0.5 % (0.9-2.9) L 10/23/19 04:36 Baso % (Auto) 0.3 % (0.2-1.0) 10/23/19 04:36 Neut # (Auto) 11.6 x10^3/uL (2.2-4.8) H 10/23/19 04:36 Lymph # (Auto) 1.1 X10^3/uL (1.3-2.9) L 10/23/19 04:36 [place] # (Auto) 0.6 x10^3/uL (0.3-0.8) 10/23/19 04:36 Eos # (Auto) 0.1 x10^3/uL (0.0-0.2) 10/23/19 04:36 Baso # (Auto) 0.0 X10^3/uL (0.0-0.1) 10/23/19 04:36 Absolute Nucleated RBC 0.1 /100WBC 10/23/19 04:36 Total Counted 100 10/20/19 21:51 Neutrophils % (Manual) 68 % (39-76) 10/20/19 21:51 Band Neutrophils % 15 % (0-10) H 10/20/19 21:51 Lymphocytes % (Manual) 9 % (13-43) L 10/20/19 21:51 Monocytes % (Manual) 8 % (4-9) 10/20/19 21:51 Plt Morphology Comment Normal (NORMAL) 10/20/19 21:51 RBC Morphology Normal (NORMAL) 10/20/19 21:51 PT 14.0 SECONDS (11.8-14.3) 10/20/19 21:51 INR Target Range - 10/20/19 21:51 INR 1.12 (0.8-1.3) 10/20/19 21:51 APTT 58.5 SECONDS (22.9-36.5) H 10/20/19 21:51 PTT Comment - 10/20/19 21:51 Sodium 142 mmol/L (136-145) 10/23/19 04:36 Corrected Sodium TNP 10/23/19 04:36 Potassium 5.1 mmol/L (3.5-5.1) 10/23/19 04:36 Chloride 109 mmol/L (98-107) H 10/23/19 04:36 Carbon Dioxide 19.8 mmol/L (21-32) L 10/23/19 04:36 BUN 94 mg/dL (7-18) H 10/23/19 04:36 Creatinine 2.76 mg/dL (0.55-1.02) H 10/23/19 04:36 Est GFR (MDRD) Af Amer 21 (>60) L 10/23/19 04:36 Est GFR (MDRD) Non-Af 17 (>60) L 10/23/19 04:36 Glucose 110 mg/dL (65-99) H 10/23/19 04:36 Calcium 8.2 mg/dL (8.5-10.1) L 10/23/19 04:36 Corrected Calcium 10.0 mg/dL (8.5-10.1) 10/23/19 04:36 Total Bilirubin 0.60 mg/dL (0.2-1.0) 10/23/19 04:36 AST 75 Units/L (15-37) H 10/23/19 04:36 ALT 24 Units/L (12-78) 10/23/19 04:36 Alkaline Phosphatase 156 Units/L (46-116) H 10/23/19 04:36 Ammonia < 10 umol/L (11-32) L 10/21/19 10:24 Total Protein 5.7 g/dL (6.4-8.2) L 10/23/19 04:36 Albumin 1.8 g/dL (3.4-5.0) L 10/23/19 04:36 Globulin 3.9 g/dL (2.5-4.5) 10/23/19 04:36 Albumin/Globulin Ratio 0.5 Ratio (1.1-2.1) L 10/23/19 04:36 Specimen Type Catherized urine 10/20/19 23:25 Urine Color Mame (YELLOW) 10/20/19 23:25 Urine Appearance Clear (CLEAR) 10/20/19 23:25 Urine pH 5.0 (5.0 - 8.0) 10/20/19 23:25 Ur Specific [place] 1.015 (1.000-1.030) 10/20/19 23:25 Urine Protein 1+ (NEGATIVE) 10/20/19 23:25 Urine Glucose (UA) Negative (NEGATIVE) 10/20/19 23:25 Urine Ketones Negative (NEGATIVE) 10/20/19 23:25 Urine Occult Blood 5+ (NEGATIVE) 10/20/19 23:25 Urine Nitrite Negative (NEGATIVE) 10/20/19 23:25 Urine Bilirubin 1+ (NEGATIVE) 10/20/19 23:25 Urine Urobilinogen 1+ (NORMAL) 10/20/19 23:25 Ur Leukocyte Esterase 1+ (NEGATIVE) 10/20/19 23:25 Urine RBC 30-50 /HPF (0-3) A 10/20/19 23:25 Urine WBC 0-2 /HPF (0-5) 10/20/19 23:25 Ur Squamous Epith Cells Rare /HPF (NEGATIVE) 10/20/19 23:25 Urine Bacteria Negative /HPF (NEGATIVE) 10/20/19 23:25 Ur Culture Indicated? No/not indicated 10/20/19 23:25 Ur Random Sodium 28 mmol/L (40-220) L 10/22/19 13:11 Urine Creatinine 147.59 mg/dL (29-226) 10/22/19 13:11 Plan (1) CVA (cerebral vascular accident): Status: Acute Qualifiers: CVA mechanism: unspecified Qualified Code(s): I63.9 - Cerebral infa rction, unspecified Plan: PT/OT/ST consulted, follow up recommendations. Will optimize medical management. Will start Lipitor, hold starting ASA d/t platelet level. (2) TIA (transient ischemic attack): Status: Acute Plan: Follow up Echo, Carotid Doppler, MRI. PT/OT/ST (3) Acute on chronic renal failure: Status: Acute Plan: Cr(BL 1.1):4.78>3.87>2.76 IVF NS@150ml/hr (4) Hyperkalemia: Status: Acute Plan: WNL, continue to monitor.
[2019-10-23] MEDS: NORCO 5/325 MG TAB PO PRN ×2 (13:12→21:01)
[2019-10-23] MEDS ORDERED: LOPRESSOR INJ 5 MG AMP IVP ONE (19:24)
[2019-10-23] MEDS: TYLENOL 325 MG TAB PO PRN (19:31)
[2019-10-23] MEDS ORDERED: LOPRESSOR INJ 5 MG AMP ONE (19:39)
[2019-10-23 20:59] LABS: CKMB % 1.3 % (<4); TROPONIN I 0.17 ng/mL (0-1.5)
[2019-10-23] MEDS: COLACE CAP 100 MG PO SCH (21:00)
[2019-10-23] MEDS: XANAX PO SCH (21:00)
[2019-10-23 21:02] LABS: CREATINE KINASE MB 10.5 ng/mL (0-4.0)
[2019-10-23] MEDS: MILK OF MAGNESIA PO SCH (21:02)
[2019-10-23] MEDS ORDERED: MAXIPIME VIAL 1 GRAM 1 G in NS 50 ML IV + SPIKE MINIBAG* 50 ML IV SCH (21:50)
[2019-10-23] MEDS ORDERED: PHARMACY CONSULT - VANCOMYCIN XX SCH (22:00)
[2019-10-23 22:24] LABS: BILIRUBIN,URINE NEGATIVE (NEGATIVE); BLOOD/HEMOGLOBIN,URINE 3+ (NEGATIVE); GLUCOSE, URINE NEGATIVE (NEGATIVE); KETONES,URINE 1+ (NEGATIVE); LEUKOCYTE ESTERASE ,URINE 3+ (NEGATIVE); NITRITES,URINE POSITIVE (NEGATIVE); PROTEIN,URINE 2+ (NEGATIVE); UROBILINOGEN,URINE 1+ (NORMAL)
[2019-10-23 22:32] LABS: APPEARANCE,URINE CLOUDY (CLEAR); BACTERIA,URINE 2+ /HPF (NEGATIVE); COLOR,URINE YELLOW (YELLOW); SQUAMOUS EPITHELIAL CELL,UR RARE /HPF (NEGATIVE)
[2019-10-23 22:33] LABS: GRANULAR CASTS,URINE FEW /LPF (NEGATIVE); RENAL EPITHELIAL CELLS,URINE RARE /HPF (NEGATIVE)
[2019-10-23] MEDS ORDERED: NS 100 ML IV + SPIKE MINIBAG* 100 ML IV ONE (22:41)
[2019-10-23] MEDS ORDERED: MERREM VIAL ONE (22:41)
[2019-10-23] MEDS: MERREM VIAL 1 G in NS 100 ML IV + SPIKE MINIBAG* 100 ML IV SCH (22:49)
[2019-10-23] MEDS ORDERED: VANCOMYCIN HCL 250 MG, VANCOMYCIN HCL 1 G in NS 250 ML IV 250 ML IV ONE (23:00)
[2019-10-24] MEDS ORDERED: VANCOMYCIN HCL ONE ×4 (00:32→10:50)
[2019-10-24] MEDS ORDERED: NS 250 ML IV 250 ML IV ONE (00:32)
[2019-10-24] MEDS: LOPRESSOR TAB 25 MG PO SCH ×3 (00:36→21:36)
[2019-10-24 06:14] LABS: BASOPHILS % (AUTO) 0.1 % (0.2-1.0); EOSINOPHILS % (AUTO) 0.2 % (0.9-2.9); HEMATOCRIT 31.4 % (36.0-47.0); HEMOGLOBIN 10.3 g/dL (12.0-16.0); LYMPHOCYTES # (AUTO) 1.4 X10^3/uL (1.3-2.9); LYMPHOCYTES % (AUTO) 7.2 % (21.0-51.0); MEAN CORPUSCULAR HEMOGLOBIN 33.4 pg (27.0-34.0); MEAN CORPUSCULAR HGB CONC 32.7 g/dL (33.0-35.0); MEAN CORPUSCULAR VOLUME 102.1 fL (80.0-100.0); MEAN PLATELET VOLUME 10.9 fL (7.4-11.0); MONOCYTES % (AUTO) 4.9 % (0.0-13.0); NEUTROPHILS # (AUTO) 17.4 x10^3/uL (2.2-4.8); NEUTROPHILS % (AUTO) 87.6 % (42.0-75.0); PLATELET COUNT 83 X10^3/uL (150.0-450.0); RED BLOOD COUNT 3.07 X10^6/uL (3.5-5.4); WHITE BLOOD COUNT 19.9 X10^3/uL (3.6-10.0)
--- NOTE | 2019-10-24 06:20 | RAD ---
HISTORYAsthmaSTUDYCHEST, 1 VIEWCOMPARISONNoneFINDINGSThe heart is enlarged. No congestive heart failure is noted. No acute alveolar infiltrates are identified. There is blunting of the left costophrenic angle suggestive of a small pleural effusion. Bony thorax is unremarkable.IMPRESSIONNo acute infiltratesMild cardiomegaly without congestive heart failureBlunting of the left costophrenic angle suggestive of a small pleural effusionElectronically signed by: ALBER MIKE (Oct 24, 2019 06:18:53)
[2019-10-24] MEDS: NS 1000 ML 1,000 ML IV SCH (06:44)
[2019-10-24 06:49] LABS: GIANT PLATELET NOTED
[2019-10-24 06:50] LABS: PLATELET MORPHOLOGY COMMENT NORMAL (NORMAL)
[2019-10-24 06:52] LABS: ALBUMIN 1.6 g/dL (3.4-5.0); CALCIUM 8.2 mg/dL (8.5-10.1); CARBON DIOXIDE 19.8 mmol/L (21-32); CKMB % 1.2 % (<4); COR CA(FOR HYPOALB) 10.1 mg/dL (8.5-10.1); CREATININE 2.24 mg/dL (0.55-1.02); TOTAL PROTEIN 5.5 g/dL (6.4-8.2); TROPONIN I 0.46 ng/mL (0-1.5)
[2019-10-24 06:57] LABS: BAND NEUTROPHILS % 5 % (0-10)
[2019-10-24 07:04] LABS: CREATINE KINASE MB 8.7 ng/mL (0-4.0)
[2019-10-24] MEDS: MERREM VIAL 1 G in NS 100 ML IV + SPIKE MINIBAG* 100 ML IV SCH ×2 (09:28→21:34)
[2019-10-24] MEDS: LIPITOR TAB 20 MG PO SCH (09:29)
[2019-10-24] MEDS: SYNTHROID 88 mcg TAB PO SCH (09:29)
[2019-10-24] MEDS: ZOLOFT PO SCH (09:29)
[2019-10-24] MEDS: NORCO 5/325 MG TAB PO PRN ×2 (09:52→21:35)
[2019-10-24] MEDS: LR 1000 ML IV 1,000 ML IV SCH ×3 (10:42→18:58)
[2019-10-24] MEDS ORDERED: D5W 250 ML IV 250 ML IV ONE (10:49)
[2019-10-24] MEDS: VANCOMYCIN HCL 250 MG, VANCOMYCIN HCL 1 G in D5W 250 ML IV 250 ML IV SCH ×2 (10:59→11:03)
[2019-10-24] MEDS: TYLENOL 325 MG TAB PO PRN (13:04)
[2019-10-24 18:27] LABS: CALCIUM 8.3 mg/dL (8.5-10.1); CARBON DIOXIDE 16.8 mmol/L (21-32); CREATININE 1.9 mg/dL (0.55-1.02)
[2019-10-24] MEDS ORDERED: KAYEXALATE SUSP PO ONE (20:31)
--- NOTE | 2019-10-24 21:14 | RAD ---
CHEST, 1 VIEWHISTORY: EDEMA IN EXT, CHF, SOBStudy: AP view of the chest.Comparison:October 21, 2019Findings:Cardiomegaly, pulmonary edema and trace left effusion. This has worsened slightly when compared to prior. No definite consolidation osseous structures demonstrate no acute abnormality. Bilateral hyperexpansion and interstitial prominence.IMPRESSION:1. Slight worsening of mild pulmonary edema like pattern with trace left effusion.2. Findings of COPD.Electronically signed by: NEEMA WHITE (Oct 24, 2019 21:13:04)
[2019-10-24] MEDS: XANAX PO SCH (21:35)
[2019-10-24] MEDS: COLACE CAP 100 MG PO SCH (21:37)
[2019-10-24] MEDS: MILK OF MAGNESIA PO SCH (21:39)
[2019-10-25] MEDS: LR 1000 ML IV 1,000 ML IV SCH ×3 (04:12→18:12)
[2019-10-25 06:07] LABS: ALBUMIN 1.6 g/dL (3.4-5.0); CALCIUM 8.2 mg/dL (8.5-10.1); CARBON DIOXIDE 21.4 mmol/L (21-32); COR CA(FOR HYPOALB) 10.1 mg/dL (8.5-10.1); CREATININE 1.64 mg/dL (0.55-1.02); TOTAL PROTEIN 5.6 g/dL (6.4-8.2)
[2019-10-25 06:09] LABS: BASOPHILS # (AUTO) 0.1 X10^3/uL (0.0-0.1); BASOPHILS % (AUTO) 0.8 % (0.2-1.0); EOSINOPHILS # (AUTO) 0.1 x10^3/uL (0.0-0.2); EOSINOPHILS % (AUTO) 0.3 % (0.9-2.9); HEMATOCRIT 31.7 % (36.0-47.0); HEMOGLOBIN 10.4 g/dL (12.0-16.0); LYMPHOCYTES # (AUTO) 1.3 X10^3/uL (1.3-2.9); LYMPHOCYTES % (AUTO) 8.5 % (21.0-51.0); MEAN CORPUSCULAR HEMOGLOBIN 33.1 pg (27.0-34.0); MEAN CORPUSCULAR HGB CONC 32.8 g/dL (33.0-35.0); MEAN CORPUSCULAR VOLUME 101.1 fL (80.0-100.0); MEAN PLATELET VOLUME 11.4 fL (7.4-11.0); MONOCYTES # (AUTO) 0.7 x10^3/uL (0.3-0.8); MONOCYTES % (AUTO) 4.7 % (0.0-13.0); NEUTROPHILS % (AUTO) 85.7 % (42.0-75.0); PLATELET COUNT 81 X10^3/uL (150.0-450.0); RED BLOOD COUNT 3.14 X10^6/uL (3.5-5.4); RED CELL DISTRIBUTION WIDTH 17.1 % (11.6-16.5); WHITE BLOOD COUNT 15.2 X10^3/uL (3.6-10.0)
[2019-10-25 06:48] LABS: BAND NEUTROPHILS % 3 % (0-10); PLATELET MORPHOLOGY COMMENT NORMAL (NORMAL)
[2019-10-25] MEDS: MERREM VIAL 1 G in NS 100 ML IV + SPIKE MINIBAG* 100 ML IV SCH ×2 (08:37→21:02)
[2019-10-25] MEDS: SYNTHROID 88 mcg TAB PO SCH (08:38)
[2019-10-25] MEDS: LOPRESSOR TAB 25 MG PO SCH ×2 (08:40→21:06)
[2019-10-25] MEDS: LIPITOR TAB 20 MG PO SCH (08:41)
[2019-10-25] MEDS: ZOLOFT PO SCH (08:41)
[2019-10-25] MEDS: NORCO 5/325 MG TAB PO PRN ×2 (08:43→18:12)
[2019-10-25] MEDS ORDERED: KAYEXALATE SUSP PO NR (10:00)
[2019-10-25] MEDS ORDERED: VANCOMYCIN HCL ONE ×2 (10:10→10:11)
[2019-10-25] MEDS ORDERED: D5W 250 ML IV 250 ML IV ONE (10:11)
[2019-10-25] MEDS: VANCOMYCIN HCL 250 MG, VANCOMYCIN HCL 1 G in D5W 250 ML IV 250 ML IV SCH (10:30)
[2019-10-25] MEDS ORDERED: LASIX IVP ONE (10:43)
[2019-10-25 17:27] LABS: CALCIUM 8.5 mg/dL (8.5-10.1); CARBON DIOXIDE 25.4 mmol/L (21-32); CREATININE 1.51 mg/dL (0.55-1.02)
[2019-10-25] MEDS: MILK OF MAGNESIA PO SCH (21:06)
[2019-10-25] MEDS: COLACE CAP 100 MG PO SCH (21:06)
[2019-10-25] MEDS: XANAX PO SCH (21:06)
[2019-10-26] MEDS: LR 1000 ML IV 1,000 ML IV SCH (03:00)
[2019-10-26 05:28] LABS: BASOPHILS % (AUTO) 0.2 % (0.2-1.0); HEMOGLOBIN 10.7 g/dL (12.0-16.0); LYMPHOCYTES # (AUTO) 1.2 X10^3/uL (1.3-2.9); LYMPHOCYTES % (AUTO) 6.4 % (21.0-51.0); MEAN CORPUSCULAR HEMOGLOBIN 33.6 pg (27.0-34.0); MEAN CORPUSCULAR HGB CONC 33.5 g/dL (33.0-35.0); MEAN CORPUSCULAR VOLUME 100.4 fL (80.0-100.0); MEAN PLATELET VOLUME 11.9 fL (7.4-11.0); MONOCYTES # (AUTO) 0.8 x10^3/uL (0.3-0.8); NEUTROPHILS # (AUTO) 16.8 x10^3/uL (2.2-4.8); NEUTROPHILS % (AUTO) 89.4 % (42.0-75.0); PLATELET COUNT 130 X10^3/uL (150.0-450.0); RED BLOOD COUNT 3.19 X10^6/uL (3.5-5.4); RED CELL DISTRIBUTION WIDTH 16.2 % (11.6-16.5); WHITE BLOOD COUNT 18.8 X10^3/uL (3.6-10.0)
[2019-10-26 05:44] LABS: ALBUMIN 1.7 g/dL (3.4-5.0); CALCIUM 8.3 mg/dL (8.5-10.1); CARBON DIOXIDE 24.3 mmol/L (21-32); COR CA(FOR HYPOALB) 10.1 mg/dL (8.5-10.1); CREATININE 1.28 mg/dL (0.55-1.02); TOTAL PROTEIN 5.9 g/dL (6.4-8.2)
[2019-10-26 06:12] LABS: BAND NEUTROPHILS % 5 % (0-10)
[2019-10-26 06:13] LABS: PLATELET MORPHOLOGY COMMENT NORMAL (NORMAL)
--- NOTE | 2019-10-26 09:11 | RAD ---
HISTORYCHFSTUDYAP [id number]/02/2020FINDINGSContinued cardiomegaly. Diffuse airspace process suggested in both b ases, left greater than right. This process has increased. The upper lungs are relatively clear. No p neumothorax or large pleural effusion.IMPRESSIONStable cardiomegaly. Increasing pulmonary densities i n the lower lobes consistent with edema and/or pneumonia.Electronically signed by: MAURILIO GARCIA (José n 2019 09:10:05)
[2019-10-26] MEDS: TYLENOL 325 MG TAB PO PRN (09:30)
[2019-10-26] MEDS ORDERED: LASIX IVP ONE ×2 (09:42→10:20)
--- NOTE | 2019-10-26 09:44 | PCM.PROG ---
Progress Note Progress Note for Day of Date of Exam: 10/26/19 Subjective Subjective: Pt is a 89 yo f admitted for acute CVA after having TIA event that showed on MRI small punctate areas of acute ischemia in R parietal and L cerebellar hemisphere. Her renal function is improving, Cr trending down. Na continues to be mildly elevated, K normalized. Will change IVF D5 1/2 NS. CXR shows increasing pulmonary densities/edema. Received IV Lasix yesterday, will give another Lasix dose x 1. Wbc slightly up from yesterday. UrineCx gram negative rods. BloodCx pending. Continue antibiotics and follow up AM labs. Past Medical Family Social History Past Med/Fam/Surg Hx: No changes since H&P Allergies: Allergies ceftriaxone [From Rocephin] Allergy (Verified 10/21/19 01:51) cephalexin [From Keflex] Allergy (Verified 12/10/18 19:05) Cephalosporins Allergy (Verified 10/21/19 01:51) levofloxacin [From Levaquin] Allergy (Verified 12/10/18 19:05) Penicillins Allergy (Verified 12/10/18 19:05) Sulfa (Sulfonamide Antibiotics) [SULFA] Allergy (Verified 12/10/18 19:05) Review of Systems ROS: No change since H&P Vital Signs and I&O's Vital Signs: Temperature 100.6 F Pulse Rate [Left Brachial] 100 Pulse Rate 87 Respiratory Rate 26 Blood Pressure [Left Arm] 172/82 Blood Pressure 169/77 O2 Sat by Pulse Oximetry 97 Intake and Output: Intake & Output 10/23/19 10/24/19 10/25/19 10/26/19 23:59 23:59 23:59 23:59 Intake Total 4740 / 4740 1240 / 1240 3178 / 3178 724 / 724 Output Total 920 / 920 600 / 600 3200 / 3200 650 / 650 Balance 3820 / 3820 640 / 640 -22 / -22 74 / 74 Physical Exam Oriented: Time, Person and Place Eyes: Normal Ear: Normal Nose: Normal Respiratory: Normal Cardiovascular: Normal : Normal Auscultation: Bowel Sounds: Normal Tenderness: Normal Skin: Normal Musculoskeletal: Left (LUE:strength 4/5 ) Psychiatric: Normal Mood Description: Calm Speech Pattern: Unclear Laboratory and Diagnostics Result Diagrams: 10/26/19 04:56 10/26/19 04:56 Labs: 10/23/19 21:53 Urine,Clean Catch Urine Culture - Preliminary Laboratory WBC 18.8 X10^3/uL (3.6-10.0) H 10/26/19 04:56 RBC 3.19 X10^6/uL (3.5-5.4) L 10/26/19 04:56 Hgb 10.7 g/dL (12.0-16.0) L 10/26/19 04:56 Hct 32.0 % (36.0-47.0) L 10/26/19 04:56 MCV 100.4 fL (80.0-100.0) H 10/26/19 04:56 MCH 33.6 pg (27.0-34.0) 10/26/19 04:56 MCHC 33.5 g/dL (33.0-35.0) 10/26/19 04:56 RDW 16.2 % (11.6-16.5) 10/26/19 04:56 Plt Count 130 X10^3/uL (150.0-450.0) L 10/26/19 04:56 Plt Count Comment Adequate (ADEQUATE) 10/26/19 04:56 MPV 11.9 fL (7.4-11.0) H 10/26/19 04:56 Neut % (Auto) 89.4 % (42.0-75.0) H 10/26/19 04:56 Lymph % (Auto) 6.4 % (21.0-51.0) L 10/26/19 04:56 [place] % (Auto) 4.0 % (0.0-13.0) 10/26/19 04:56 Eos % (Auto) 0.0 % (0.9-2.9) L 10/26/19 04:56 Baso % (Auto) 0.2 % (0.2-1.0) 10/26/19 04:56 Neut # (Auto) 16.8 x10^3/uL (2.2-4.8) H 10/26/19 04:56 Lymph # (Auto) 1.2 X10^3/uL (1.3-2.9) L 10/26/19 04:56 [place] # (Auto) 0.8 x10^3/uL (0.3-0.8) 10/26/19 04:56 Eos # (Auto) 0.0 x10^3/uL (0.0-0.2) 10/26/19 04:56 Baso # (Auto) 0.0 X10^3/uL (0.0-0.1) 10/26/19 04:56 Absolute Nucleated RBC 0.3 /100WBC 10/26/19 04:56 Total Counted 100 10/26/19 04:56 Neutrophils % (Manual) 85 % (39-76) H 10/26/19 04:56 Band Neutrophils % 5 % (0-10) 10/26/19 04:56 Lymphocytes % (Manual) 7 % (13-43) L 10/26/19 04:56 Monocytes % (Manual) 3 % (4-9) L 10/26/19 04:56 Giant Platelets Noted 10/24/19 05:22 Plt Morphology Comment Normal (NORMAL) 10/26/19 04:56 RBC Morphology Normal (NORMAL) 10/26/19 04:56 PT 14.0 SECONDS (11.8-14.3) 10/20/19 21:51 INR Target Range - 10/20/19 21:51 INR 1.12 (0.8-1.3) 10/20/19 21:51 APTT 58.5 SECONDS (22.9-36.5) H 10/20/19 21:51 PTT Comment - 10/20/19 21:51 Sodium 148 mmol/L (136-145) H 10/26/19 04:56 Corrected Sodium 149 mmol/L (136-145) H 10/26/19 04:56 Potassium 4.8 mmol/L (3.5-5.1) 10/26/19 04:56 Chloride 113 mmol/L (98-107) H 10/26/19 04:56 Carbon Dioxide 24.3 mmol/L (21-32) 10/26/19 04:56 BUN 69 mg/dL (7-18) H 10/26/19 04:56 Creatinine 1.28 mg/dL (0.55-1.02) H 10/26/19 04:56 Est GFR (MDRD) Af Amer 51 (>60) L 10/26/19 04:56 Est GFR (MDRD) Non-Af 42 (>60) L 10/26/19 04:56 Glucose 129 mg/dL (65-99) H 10/26/19 04:56 Calcium 8.3 mg/dL (8.5-10.1) L 10/26/19 04:56 Corrected Calcium 10.1 mg/dL (8.5-10.1) 10/26/19 04:56 Total Bilirubin 0.50 mg/dL (0.2-1.0) 10/26/19 04:56 AST 59 Units/L (15-37) H 10/26/19 04:56 ALT 24 Units/L (12-78) 10/26/19 04:56 Alkaline Phosphatase 161 Units/L (46-116) H 10/26/19 04:56 Ammonia < 10 umol/L (11-32) L 10/21/19 10:24 Creatine Kinase 718 Units/L (26-192) H 10/24/19 05:22 CK-MB (CK-2) 8.7 ng/mL (0-4.0) H* 10/24/19 05:22 CK/CKMB % Calc 1.2 % (<4) 10/24/19 05:22 Troponin I 0.46 ng/mL (0-1.5) 10/24/19 05:22 Total Protein 5.9 g/dL (6.4-8.2) L 10/26/19 04:56 Albumin 1.7 g/dL (3.4-5.0) L 10/26/19 04:56 Globulin 4.2 g/dL (2.5-4.5) 10/26/19 04:56 Albumin/Globulin Ratio 0.4 Ratio (1.1-2.1) L 10/26/19 04:56 Specimen Type Catherized urine 10/23/19 22:02 Urine Color Yellow (YELLOW) 10/23/19 22:02 Urine Appearance Cloudy (CLEAR) 10/23/19 22:02 Urine pH 5.0 (5.0 - 8.0) 10/23/19 22:02 Ur Specific [place] 1.020 (1.000-1.030) 10/23/19 22:02 Urine Protein 2+ (NEGATIVE) 10/23/19 22:02 Urine Glucose (UA) Negative (NEGATIVE) 10/23/19 22:02 Urine Ketones 1+ (NEGATIVE) 10/23/19 22:02 Urine Occult Blood 3+ (NEGATIVE) 10/23/19 22:02 Urine Nitrite Positive (NEGATIVE) 10/23/19 22:02 Urine Bilirubin Negative (NEGATIVE) 10/23/19 22:02 Urine Urobilinogen 1+ (NORMAL) 10/23/19 22:02 Ur Leukocyte Esterase 3+ (NEGATIVE) 10/23/19 22:02 Urine RBC 3-5 /HPF (0-3) A 10/23/19 22:02 Urine WBC 20-30 /HPF (0-5) A 10/23/19 22:02 Ur Squamous Epith Cells Rare /HPF (NEGATIVE) 10/23/19 22:02 Ur Transition Epith Cell Cancelled 10/23/19 21:53 Ur Renal Epithelial Cell Rare /HPF (NEGATIVE) 10/23/19 22:02 Calcium Oxalate Crystal Cancelled 10/23/19 21:53 Cystine Crystals Cancelled 10/23/19 21:53 Uric Acid Crystals Cancelled 10/23/19 21:53 Triple Phos Crystals Cancelled 10/23/19 21:53 Tyrosine Crystals Cancelled 10/23/19 21:53 Other Crystals Cancelled 10/23/19 21:53 Amorphous Sediment Cancelled 10/23/19 21:53 Urine Bacteria 2+ /HPF (NEGATIVE) 10/23/19 22:02 Hyaline Casts Cancelled 10/23/19 21:53 Granular Casts Few /LPF (NEGATIVE) 10/23/19 22:02 Fine Granular Casts Cancelled 10/23/19 21:53 Coarse Granular Casts Cancelled 10/23/19 21:53 RBC Casts Cancelled 10/23/19 21:53 Other Casts Cancelled 10/23/19 21:53 Urine Mucus Cancelled 10/23/19 21:53 Urine Trichomonas Cancelled 10/23/19 21:53 Urine Yeast Cancelled 10/23/19 21:53 Urine Sperm Cancelled 10/23/19 21:53 Ur Culture Indicated? Yes/culture set up 10/23/19 22:02 Ur Random Sodium 28 mmol/L (40-220) L 10/22/19 13:11 Urine Creatinine 147.59 mg/dL (29-226) 10/22/19 13:11 Influenza Type A (PCR) Negative (NEGATIVE) 10/23/19 21:53 Influenza Type B (PCR) Negative (NEGATIVE) 10/23/19 21:53 Plan (1) CVA (cerebral vascular accident): Status: Acute Qualifiers: CVA mechanism: unspecified Qualified Code(s): I63.9 - Cerebral infarction, unspecified Plan: PT/OT/ST, optimized medical management (2) TIA (transient ischemic attack): Status: Acute Plan: PT/OT/ST (3) Acute on chronic renal failure: Status: Acute Plan: Cr(BL 1.1):4.78>3.87>2.76 IVF NS@150ml/hr (4) Hyperkalemia: Status: Acute Plan: WNL, continue to monitor. (5) UTI (urinary tract infection): Status: Acute Plan: Rocephin UrineCx pending
[2019-10-26] MEDS ORDERED: D5 1/2 NS 1000 ML 1,000 ML IV ONE (09:53)
[2019-10-26] MEDS: D5 1/2 NS 1000 ML 1,000 ML IV SCH (09:54)
[2019-10-26] MEDS: MERREM VIAL 1 G in NS 100 ML IV + SPIKE MINIBAG* 100 ML IV SCH ×2 (10:00→21:45)
[2019-10-26] MEDS: ZOLOFT PO SCH (10:00)
[2019-10-26] MEDS: SYNTHROID 88 mcg TAB PO SCH (10:08)
[2019-10-26] MEDS: LIPITOR TAB 20 MG PO SCH (10:09)
[2019-10-26] MEDS: LOPRESSOR TAB 25 MG PO SCH ×2 (10:09→20:59)
[2019-10-26] MEDS: VANCOMYCIN HCL 250 MG, VANCOMYCIN HCL 1 G in D5W 250 ML IV 250 ML IV SCH (12:06)
[2019-10-26] MEDS: NORCO 5/325 MG TAB PO SCH (12:10)
[2019-10-26] MEDS: XANAX PO SCH (21:00)
[2019-10-26] MEDS: NORCO 5/325 MG TAB PO PRN (21:02)
[2019-10-26] MEDS: MILK OF MAGNESIA PO SCH (21:03)
[2019-10-26] MEDS: COLACE CAP 100 MG PO SCH (21:12)
[2019-10-27] MEDS: D5 1/2 NS 1000 ML 1,000 ML IV SCH ×3 (00:27→19:24)
[2019-10-27 05:52] LABS: BASOPHILS # (AUTO) 0.1 X10^3/uL (0.0-0.1); BASOPHILS % (AUTO) 0.6 % (0.2-1.0); EOSINOPHILS % (AUTO) 0.2 % (0.9-2.9); HEMATOCRIT 33.1 % (36.0-47.0); LYMPHOCYTES # (AUTO) 1.2 X10^3/uL (1.3-2.9); LYMPHOCYTES % (AUTO) 6.7 % (21.0-51.0); MEAN CORPUSCULAR HEMOGLOBIN 33.4 pg (27.0-34.0); MEAN CORPUSCULAR HGB CONC 33.1 g/dL (33.0-35.0); MEAN PLATELET VOLUME 11.1 fL (7.4-11.0); MONOCYTES # (AUTO) 0.8 x10^3/uL (0.3-0.8); MONOCYTES % (AUTO) 4.4 % (0.0-13.0); NEUTROPHILS # (AUTO) 16.3 x10^3/uL (2.2-4.8); NEUTROPHILS % (AUTO) 88.1 % (42.0-75.0); PLATELET COUNT 139 X10^3/uL (150.0-450.0); RED BLOOD COUNT 3.28 X10^6/uL (3.5-5.4); RED CELL DISTRIBUTION WIDTH 16.5 % (11.6-16.5); WHITE BLOOD COUNT 18.5 X10^3/uL (3.6-10.0)
[2019-10-27 05:57] LABS: ALANINE AMINOTRANSFERASE 29 Units/L (12-78); ALBUMIN 1.8 g/dL (3.4-5.0); ALKALINE PHOSPHATASE 170 Units/L (46-116); ASPARTATE AMINO TRANSFERASE 61 Units/L (15-37); BLOOD UREA NITROGEN 55 mg/dL (7-18); CALCIUM 8.5 mg/dL (8.5-10.1); CARBON DIOXIDE 26.8 mmol/L (21-32); CHLORIDE 110 mmol/L (98-107); COR CA(FOR HYPOALB) 10.3 mg/dL (8.5-10.1); COR NA(FOR HYPERGLY) 148 mmol/L (136-145); CREATININE 1.08 mg/dL (0.55-1.02); SODIUM 147 mmol/L (136-145); TOTAL PROTEIN 6.2 g/dL (6.4-8.2); eGFR NON BLACK RACES 51 (>60)
[2019-10-27 06:39] LABS: PLATELET MORPHOLOGY COMMENT NORMAL (NORMAL)
[2019-10-27] MEDS ORDERED: PHARMACY COMMENT IV NR (08:30)
[2019-10-27] MEDS: MERREM VIAL 1 G in NS 100 ML IV + SPIKE MINIBAG* 100 ML IV SCH ×2 (08:55→20:53)
[2019-10-27] MEDS: NORCO 5/325 MG TAB PO SCH (08:57)
[2019-10-27] MEDS: ZOLOFT PO SCH (08:59)
[2019-10-27] MEDS: SYNTHROID 88 mcg TAB PO SCH (08:59)
[2019-10-27] MEDS: LIPITOR TAB 20 MG PO SCH (08:59)
[2019-10-27] MEDS: LOPRESSOR TAB 25 MG PO SCH ×2 (08:59→20:59)
[2019-10-27 09:25] LABS: VANCOMYCIN,TROUGH 23.4 ug/mL (15-20)
[2019-10-27] MEDS: VANCOMYCIN HCL 250 MG, VANCOMYCIN HCL 1 G in D5W 250 ML IV 250 ML IV SCH (09:42)
--- NOTE | 2019-10-27 10:59 | PCM.PROG ---
Progress Note Progress Note for Day of Date of Exam: 10/27/19 Subjective Subjective: Pt is a 89 yo f admitted for acute CVA, UTI-E.coli, Bacteremia, and SANJAY. BloodCx(10/23/19) prelim positive for gram negative cocci, repeat cultures on 10/26/19 pending. She is currently on Vancomycin and Meropenem. Pt's Wbc remains at 18.5, Hgb 11, Plt 139. Her renal function is improving, BUN 69>55,Cr trending down 1.28>1.00. Na continues to be mildly elevated, K normalized. Continue to monitor and follow up AM labs. Past Medical Family Social History Past Med/Fam/Surg Hx: No changes since H&P Allergies: Allergies ceftriaxone [From Rocephin] Allergy (Verified 10/21/19 01:51) cephalexin [From Keflex] Allergy (Verified 12/10/18 19:05) Cephalosporins Allergy (Verified 10/21/19 01:51) levofloxacin [From Levaquin] Allergy (Verified 12/10/18 19:05) Penicillins Allergy (Verified 12/10/18 19:05) Sulfa (Sulfonamide Antibiotics) [SULFA] Allergy (Verified 12/10/18 19:05) Review of Systems ROS: No change since H&P Vital Signs and I&O's Vital Signs: Temperature 98.3 F Pulse Rate [Left Brachial] 84 Pulse Rate 87 Respiratory Rate 28 Blood Pressure [Left Arm] 169/76 Blood Pressure 169/77 O2 Sat by Pulse Oximetry 99 Intake and Output: Intake & Output 10/24/19 10/25/19 10/26/19 10/27/19 23:59 23:59 23:59 23:59 Intake Total 1240 / 1240 3178 / 3178 2210 / 2210 0 / 0 Output Total 600 / 600 3200 / 3200 2425 / 2425 400 / 400 Balance 640 / 640 -22 / -22 -215 / -215 -400 / -400 Physical Exam Oriented: Person, Place and Other Eyes: Normal Ear: Normal Nose: Normal Respiratory: Normal Cardiovascular: Normal : Normal Auscultation: Bowel Sounds: Normal Tenderness: Normal Skin: Normal Musculoskeletal: Left (LUE:strength 4/5 ) Psychiatric: Normal Mood Description: Calm Speech Pattern: Unclear and Slurred Laboratory and Diagnostics Result Diagrams: 10/27/19 04:18 10/27/19 08:53 Labs: 10/23/19 20:10 Blood Blood Culture - Preliminary 10/23/19 21:53 Urine,Clean Catch Urine Culture - Final Escherichia Coli Laboratory WBC 18.5 X10^3/uL (3.6-10.0) H 10/27/19 04:18 RBC 3.28 X10^6/uL (3.5-5.4) L 10/27/19 04:18 Hgb 11.0 g/dL (12.0-16.0) L 10/27/19 04:18 Hct 33.1 % (36.0-47.0) L 10/27/19 04:18 MCV 101.0 fL (80.0-100.0) H 10/27/19 04:18 MCH 33.4 pg (27.0-34.0) 10/27/19 04:18 MCHC 33.1 g/dL (33.0-35.0) 10/27/19 04:18 RDW 16.5 % (11.6-16.5) 10/27/19 04:18 Plt Count 139 X10^3/uL (150.0-450.0) L 10/27/19 04:18 Plt Count Comment Decreased (ADEQUATE) A 10/27/19 04:18 MPV 11.1 fL (7.4-11.0) H 10/27/19 04:18 Neut % (Auto) 88.1 % (42.0-75.0) H 10/27/19 04:18 Lymph % (Auto) 6.7 % (21.0-51.0) L 10/27/19 04:18 [place] % (Auto) 4.4 % (0.0-13.0) 10/27/19 04:18 Eos % (Auto) 0.2 % (0.9-2.9) L 10/27/19 04:18 Baso % (Auto) 0.6 % (0.2-1.0) 10/27/19 04:18 Neut # (Auto) 16.3 x10^3/uL (2.2-4.8) H 10/27/19 04:18 Lymph # (Auto) 1.2 X10^3/uL (1.3-2.9) L 10/27/19 04:18 [place] # (Auto) 0.8 x10^3/uL (0.3-0.8) 10/27/19 04:18 Eos # (Auto) 0.0 x10^3/uL (0.0-0.2) 10/27/19 04:18 Baso # (Auto) 0.1 X10^3/uL (0.0-0.1) 10/27/19 04:18 Absolute Nucleated RBC 0.0 /100WBC 10/27/19 04:18 Total Counted 100 10/27/19 04:18 Neutrophils % (Manual) 85 % (39-76) H 10/27/19 04:18 Band Neutrophils % 5 % (0-10) 10/26/19 04:56 Lymphocytes % (Manual) 10 % (13-43) L 10/27/19 04:18 Monocytes % (Manual) 5 % (4-9) 10/27/19 04:18 Giant Platelets Noted 10/24/19 05:22 Plt Morphology Comment Normal (NORMAL) 10/27/19 04:18 RBC Morphology Normal (NORMAL) 10/27/19 04:18 PT 14.0 SECONDS (11.8-14.3) 10/20/19 21:51 INR Target Range - 10/20/19 21:51 INR 1.12 (0.8-1.3) 10/20/19 21:51 APTT 58.5 SECONDS (22.9-36.5) H 10/20/19 21:51 PTT Comment - 10/20/19 21:51 Sodium 147 mmol/L (136-145) H 10/27/19 04:18 Corrected Sodium 148 mmol/L (136-145) H 10/27/19 04:18 Potassium 4.2 mmol/L (3.5-5.1) 10/27/19 04:18 Chloride 110 mmol/L (98-107) H 10/27/19 04:18 Carbon Dioxide 26.8 mmol/L (21-32) 10/27/19 04:18 BUN 55 mg/dL (7-18) H 10/27/19 04:18 Creatinine 1.00 mg/dL (0.55-1.02) 10/27/19 08:53 Est GFR (MDRD) Af Amer > 60 (>60) 10/27/19 04:18 Est GFR (MDRD) Non-Af 51 (>60) L 10/27/19 04:18 Glucose 140 mg/dL (65-99) H 10/27/19 04:18 Calcium 8.5 mg/dL (8.5-10.1) 10/27/19 04:18 Corrected Calcium 10.3 mg/dL (8.5-10.1) H 10/27/19 04:18 Magnesium 2.0 mg/dL (1.7-2.9) 10/26/19 04:56 Total Bilirubin 0.50 mg/dL (0.2-1.0) 10/27/19 04:18 AST 61 Units/L (15-37) H 10/27/19 04:18 ALT 29 Units/L (12-78) 10/27/19 04:18 Alkaline Phosphatase 170 Units/L (46-116) H 10/27/19 04:18 Ammonia < 10 umol/L (11-32) L 10/21/19 10:24 Creatine Kinase 718 Units/L (26-192) H 10/24/19 05:22 CK-MB (CK-2) 8.7 ng/mL (0-4.0) H* 10/24/19 05:22 CK/CKMB % Calc 1.2 % (<4) 10/24/19 05:22 Troponin I 0.46 ng/mL (0-1.5) 10/24/19 05:22 Total Protein 6.2 g/dL (6.4-8.2) L 10/27/19 04:18 Albumin 1.8 g/dL (3.4-5.0) L 10/27/19 04:18 Globulin 4.4 g/dL (2.5-4.5) 10/27/19 04:18 Albumin/Globulin Ratio 0.4 Ratio (1.1-2.1) L 10/27/19 04:18 Specimen Type Catherized urine 10/23/19 22:02 Urine Color Yellow (YELLOW) 10/23/19 22:02 Urine Appearance Cloudy (CLEAR) 10/23/19 22:02 Urine pH 5.0 (5.0 - 8.0) 10/23/19 22:02 Ur Specific [place] 1.020 (1.000-1.030) 10/23/19 22:02 Urine Protein 2+ (NEGATIVE) 10/23/19 22:02 Urine Glucose (UA) Negative (NEGATIVE) 10/23/19 22:02 Urine Ketones 1+ (NEGATIVE) 10/23/19 22:02 Urine Occult Blood 3+ (NEGATIVE) 10/23/19 22:02 Urine Nitrite Positive (NEGATIVE) 10/23/19 22:02 Urine Bilirubin Negative (NEGATIVE) 10/23/19 22:02 Urine Urobilinogen 1+ (NORMAL) 10/23/19 22:02 Ur Leukocyte Esterase 3+ (NEGATIVE) 10/23/19 22:02 Urine RBC 3-5 /HPF (0-3) A 10/23/19 22:02 Urine WBC 20-30 /HPF (0-5) A 10/23/19 22:02 Ur Squamous Epith Cells Rare /HPF (NEGATIVE) 10/23/19 22:02 Ur Transition Epith Cell Cancelled 10/23/19 21:53 Ur Renal Epithelial Cell Rare /HPF (NEGATIVE) 10/23/19 22:02 Calcium Oxalate Crystal Cancelled 10/23/19 21:53 Cystine Crystals Cancelled 10/23/19 21:53 Uric Acid Crystals Cancelled 10/23/19 21:53 Triple Phos Crystals Cancelled 10/23/19 21:53 Tyrosine Crystals Cancelled 10/23/19 21:53 Other Crystals Cancelled 10/23/19 21:53 Amorphous Sediment Cancelled 10/23/19 21:53 Urine Bacteria 2+ /HPF (NEGATIVE) 10/23/19 22:02 Hyaline Casts Cancelled 10/23/19 21:53 Granular Casts Few /LPF (NEGATIVE) 10/23/19 22:02 Fine Granular Casts Cancelled 10/23/19 21:53 Coarse Granular Casts Cancelled 10/23/19 21:53 RBC Casts Cancelled 10/23/19 21:53 Other Casts Cancelled 10/23/19 21:53 Urine Mucus Cancelled 10/23/19 21:53 Urine Trichomonas Cancelled 10/23/19 21:53 Urine Yeast Cancelled 10/23/19 21:53 Urine Sperm Cancelled 10/23/19 21:53 Ur Culture Indicated? Yes/culture set up 10/23/19 22:02 Ur Random Sodium 28 mmol/L (40-220) L 10/22/19 13:11 Urine Creatinine 147.59 mg/dL (29-226) 10/22/19 13:11 Vancomycin Trough 23.4 ug/mL (15-20) H* 10/27/19 08:53 Influenza Type A (PCR) Negative (NEGATIVE) 10/23/19 21:53 Influenza Type B (PCR) Negative (NEGATIVE) 10/23/19 21:53 Plan (1) Bacteremia due to Gram-negative bacteria: Status: Acute Plan: BloodCx(10/23/19):prelim gran neg cocci >repeat (10/26/19) pending -Continue abx (2) CVA (cerebral vascular accident): Status: Acute Qualifiers: CVA mechanism: unspecified Qualified Code(s): I63.9 - Cerebral infarction, unspecified Plan: PT/OT/ST, optimized medical management (3) TIA (transient ischemic attack): Status: Acute Plan: PT/OT/ST (4) Acute on chronic renal failure: Status: Acute Plan: Cr(BL 1.1):1.28>1.00 (5) Hyperkalemia: Status: Acute Plan: WNL, continue to monitor. (6) UTI (urinary tract infection): Status: Acute Plan: UrineCx:E coli Continue antibiotics
[2019-10-27] MEDS: NORCO 5/325 MG TAB PO PRN (16:10)
[2019-10-27] MEDS: TYLENOL 325 MG TAB PO PRN (20:55)
[2019-10-27] MEDS: XANAX PO SCH (20:58)
[2019-10-27] MEDS: MILK OF MAGNESIA PO SCH (20:59)
[2019-10-27] MEDS: COLACE SYRUP 100 MG UDC PO SCH (20:59)
[2019-10-28] MEDS: D5 1/2 NS 1000 ML 1,000 ML IV SCH ×2 (00:48→16:19)
[2019-10-28] MEDS: NORCO 5/325 MG TAB PO PRN ×3 (03:15→21:43)
[2019-10-28 05:48] LABS: ALANINE AMINOTRANSFERASE 27 Units/L (12-78); ALBUMIN 1.6 g/dL (3.4-5.0); ALKALINE PHOSPHATASE 148 Units/L (46-116); ASPARTATE AMINO TRANSFERASE 60 Units/L (15-37); BLOOD UREA NITROGEN 40 mg/dL (7-18); CARBON DIOXIDE 29.7 mmol/L (21-32); CHLORIDE 111 mmol/L (98-107); COR CA(FOR HYPOALB) 9.9 mg/dL (8.5-10.1); COR NA(FOR HYPERGLY) 149 mmol/L (136-145); CREATININE 0.87 mg/dL (0.55-1.02); SODIUM 148 mmol/L (136-145); TOTAL PROTEIN 5.5 g/dL (6.4-8.2); eGFR NON BLACK RACES > 60 (>60)
[2019-10-28 06:20] LABS: BASOPHILS # (AUTO) 0.1 X10^3/uL (0.0-0.1); BASOPHILS % (AUTO) 0.3 % (0.2-1.0); EOSINOPHILS # (AUTO) 0.2 x10^3/uL (0.0-0.2); EOSINOPHILS % (AUTO) 0.9 % (0.9-2.9); HEMATOCRIT 29.8 % (36.0-47.0); HEMOGLOBIN 9.8 g/dL (12.0-16.0); LYMPHOCYTES # (AUTO) 1.1 X10^3/uL (1.3-2.9); LYMPHOCYTES % (AUTO) 6.7 % (21.0-51.0); MEAN CORPUSCULAR HEMOGLOBIN 33.4 pg (27.0-34.0); MEAN CORPUSCULAR VOLUME 101.2 fL (80.0-100.0); MEAN PLATELET VOLUME 11.2 fL (7.4-11.0); MONOCYTES # (AUTO) 0.7 x10^3/uL (0.3-0.8); MONOCYTES % (AUTO) 4.1 % (0.0-13.0); NEUTROPHILS # (AUTO) 14.8 x10^3/uL (2.2-4.8); PLATELET COUNT 136 X10^3/uL (150.0-450.0); RED BLOOD COUNT 2.94 X10^6/uL (3.5-5.4); RED CELL DISTRIBUTION WIDTH 16.7 % (11.6-16.5); WHITE BLOOD COUNT 16.9 X10^3/uL (3.6-10.0)
[2019-10-28] MEDS ORDERED: VANCOMYCIN HCL 1 G in D5W 250 ML IV 250 ML IV SCH (09:00)
[2019-10-28] MEDS: MERREM VIAL 1 G in NS 100 ML IV + SPIKE MINIBAG* 100 ML IV SCH ×2 (09:45→21:41)
[2019-10-28] MEDS: LOPRESSOR TAB 25 MG PO SCH ×2 (10:03→21:43)
[2019-10-28] MEDS: ZOLOFT PO SCH (10:04)
[2019-10-28] MEDS: SYNTHROID 88 mcg TAB PO SCH (10:05)
[2019-10-28] MEDS: LIPITOR TAB 20 MG PO SCH (10:05)
[2019-10-28] MEDS ORDERED: NS 1/2 1000 ML IV 1,000 ML IV ONE (17:34)
[2019-10-28] MEDS: NS 1/2 1000 ML IV 1,000 ML IV SCH (17:51)
[2019-10-28] MEDS: MILK OF MAGNESIA PO SCH (21:41)
[2019-10-28] MEDS: COLACE SYRUP 100 MG UDC PO SCH (21:41)
[2019-10-28] MEDS: XANAX PO SCH (21:41)
[2019-10-28] MEDS: TYLENOL 325 MG TAB PO PRN (23:58)
[2019-10-29] MEDS: TYLENOL 325 MG TAB PO PRN ×2 (05:01→23:39)
[2019-10-29 05:43] LABS: BASOPHILS % (AUTO) 0.2 % (0.2-1.0); EOSINOPHILS # (AUTO) 0.1 x10^3/uL (0.0-0.2); EOSINOPHILS % (AUTO) 0.5 % (0.9-2.9); HEMATOCRIT 29.8 % (36.0-47.0); HEMOGLOBIN 9.9 g/dL (12.0-16.0); LYMPHOCYTES # (AUTO) 1.2 X10^3/uL (1.3-2.9); MEAN CORPUSCULAR HEMOGLOBIN 34.1 pg (27.0-34.0); MEAN CORPUSCULAR HGB CONC 33.3 g/dL (33.0-35.0); MEAN CORPUSCULAR VOLUME 102.4 fL (80.0-100.0); MEAN PLATELET VOLUME 11.6 fL (7.4-11.0); MONOCYTES # (AUTO) 0.7 x10^3/uL (0.3-0.8); MONOCYTES % (AUTO) 4.2 % (0.0-13.0); NEUTROPHILS # (AUTO) 14.9 x10^3/uL (2.2-4.8); NEUTROPHILS % (AUTO) 88.1 % (42.0-75.0); PLATELET COUNT 156 X10^3/uL (150.0-450.0); RED BLOOD COUNT 2.91 X10^6/uL (3.5-5.4); RED CELL DISTRIBUTION WIDTH 16.1 % (11.6-16.5); WHITE BLOOD COUNT 16.9 X10^3/uL (3.6-10.0)
[2019-10-29 05:56] LABS: ALANINE AMINOTRANSFERASE 27 Units/L (12-78); ALBUMIN 1.6 g/dL (3.4-5.0); ALKALINE PHOSPHATASE 143 Units/L (46-116); ASPARTATE AMINO TRANSFERASE 63 Units/L (15-37); BLOOD UREA NITROGEN 32 mg/dL (7-18); CALCIUM 8.1 mg/dL (8.5-10.1); CHLORIDE 110 mmol/L (98-107); COR NA(FOR HYPERGLY) 147 mmol/L (136-145); CREATININE 0.76 mg/dL (0.55-1.02); SODIUM 147 mmol/L (136-145); TOTAL PROTEIN 5.6 g/dL (6.4-8.2); eGFR NON BLACK RACES > 60 (>60)
--- NOTE | 2019-10-29 07:05 | RAD ---
HISTORYFollow-up lung infiltratesSTUDYCHEST, 1 VPVEBFROYOLXIS88/04/2020FINDINGSThe heart remains enlarged. No congestive heart failure is noted. The right lung and left upper lung osorio are clear. The previously noted right basilar lung infiltrate has resolved. There is persistent increased density in the retrocardiac area of the left lower lobe obscuring the left hemidiaphragm. This could be on the basis of atelectasis, infiltrate, effusion or combination. Bony thorax is unremarkable.IMPRESSIONCardiomegaly without congestive heart failureRight lung base now clearPersistent increased density retrocardiac area left lower lobe obscuring left hemidiaphragm. Differential diagnosis as aboveElectronically signed by: ALBER MIKE (Oct 29, 2019 07:03:29)
[2019-10-29] MEDS: NS 1/2 1000 ML IV 1,000 ML IV SCH ×2 (09:53→22:11)
[2019-10-29] MEDS: NORCO 5/325 MG TAB PO PRN ×2 (09:55→21:11)
[2019-10-29] MEDS: VSL#3 PO SCH (09:56)
[2019-10-29] MEDS: LIPITOR TAB 20 MG PO SCH (09:56)
[2019-10-29] MEDS: SYNTHROID 88 mcg TAB PO SCH (09:56)
[2019-10-29] MEDS: LOPRESSOR TAB 25 MG PO SCH ×2 (09:57→21:10)
[2019-10-29] MEDS: ZOLOFT PO SCH (09:57)
[2019-10-29] MEDS ORDERED: NS 1/2 1000 ML IV 1,000 ML IV ONE (10:39)
[2019-10-29] MEDS: RHINOCORT ALLERGY NASAL SPRAY ENOSTRIL SCH (11:37)
[2019-10-29] MEDS: XANAX PO SCH (21:10)
[2019-10-29] MEDS: COLACE SYRUP 100 MG UDC PO SCH (21:12)
[2019-10-29] MEDS: MILK OF MAGNESIA PO SCH (21:12)
[2019-10-30] MEDS ORDERED: NS 1/2 1000 ML IV 1,000 ML IV ONE ×2 (04:45→20:50)
[2019-10-30] MEDS: NS 1/2 1000 ML IV 1,000 ML IV SCH ×4 (05:01→21:53)
[2019-10-30] MEDS: NORCO 5/325 MG TAB PO PRN ×2 (05:28→20:46)
[2019-10-30 06:22] LABS: BASOPHILS % (AUTO) 0.2 % (0.2-1.0); EOSINOPHILS % (AUTO) 0.2 % (0.9-2.9); HEMOGLOBIN 10.3 g/dL (12.0-16.0); LYMPHOCYTES # (AUTO) 1.5 X10^3/uL (1.3-2.9); LYMPHOCYTES % (AUTO) 9.3 % (21.0-51.0); MEAN CORPUSCULAR HEMOGLOBIN 33.6 pg (27.0-34.0); MEAN CORPUSCULAR HGB CONC 33.2 g/dL (33.0-35.0); MEAN CORPUSCULAR VOLUME 101.4 fL (80.0-100.0); MEAN PLATELET VOLUME 11.2 fL (7.4-11.0); MONOCYTES # (AUTO) 0.8 x10^3/uL (0.3-0.8); NEUTROPHILS # (AUTO) 13.5 x10^3/uL (2.2-4.8); NEUTROPHILS % (AUTO) 85.3 % (42.0-75.0); PLATELET COUNT 198 X10^3/uL (150.0-450.0); RED BLOOD COUNT 3.06 X10^6/uL (3.5-5.4); RED CELL DISTRIBUTION WIDTH 15.9 % (11.6-16.5); WHITE BLOOD COUNT 15.8 X10^3/uL (3.6-10.0)
[2019-10-30 07:07] LABS: ALANINE AMINOTRANSFERASE 26 Units/L (12-78); ALBUMIN 1.7 g/dL (3.4-5.0); ALKALINE PHOSPHATASE 155 Units/L (46-116); ASPARTATE AMINO TRANSFERASE 64 Units/L (15-37); BLOOD UREA NITROGEN 31 mg/dL (7-18); CALCIUM 8.4 mg/dL (8.5-10.1); CARBON DIOXIDE 28.2 mmol/L (21-32); CHLORIDE 108 mmol/L (98-107); COR CA(FOR HYPOALB) 10.2 mg/dL (8.5-10.1); COR NA(FOR HYPERGLY) 145 mmol/L (136-145); CREATININE 0.69 mg/dL (0.55-1.02); SODIUM 145 mmol/L (136-145); TOTAL PROTEIN 6.1 g/dL (6.4-8.2); eGFR NON BLACK RACES > 60 (>60)
[2019-10-30] MEDS: VSL#3 PO SCH (11:17)
[2019-10-30] MEDS: LIPITOR TAB 20 MG PO SCH (11:17)
[2019-10-30] MEDS: SYNTHROID 88 mcg TAB PO SCH (11:17)
[2019-10-30] MEDS: ZOLOFT PO SCH (11:18)
[2019-10-30] MEDS: RHINOCORT ALLERGY NASAL SPRAY ENOSTRIL SCH (11:18)
[2019-10-30] MEDS: LOPRESSOR TAB 25 MG PO SCH ×2 (11:18→20:47)
--- NOTE | 2019-10-30 16:23 | CT ---
HISTORYFever and leukocytosis and urinary tract infection.STUDYCT abdomen and pelvis after oral enhancement of the gastrointestinal tract and before and after intravenous contrast infusion. Dose reduction techniques were utilized. Sagittal and coronal reformations were provided.COMPARISONNoneFINDINGSThere are bilateral small pleural effusions. There is a 1.9 cm cyst in the cortex of the upper pole of the left kidney medially. There is no hydronephrosis or renal calculus. The liver and spleen and pancreas and adrenal glands are unremarkable. The gallbladder is distended measuring 9.5 cm length and 4.4 cm diameter. No wall thickening or stone is demonstrated. There is no biliary dilatation demonstrated. There is no ascites or adenopathy. The appendix is absent. There is moderate sigmoid diverticulosis without stranding of fat planes. There is a fluid collection posterior to the rectum. There is a catheter in the urinary bladder. No adenopathy is demonstrated. There is severe atherosclerotic calcification in the aorta. The uterus is absent as well as the appendix. No adnexal mass is demonstrated. There is L5-S1 degenerative disc disease. No hernia is demonstrated. There is a large stool ball in the rectum.IMPRESSION1. Bilateral pleural effusions2. Free fluid posterior to the rectum3. Sigmoid diverticulosis4. Distended gallbladder without demonstration of stone5. And small cyst in the upper pole of the left kidney.Electronically signed by: PRIYANK ISAAC (Oct 30, 2019 16:21:38)
[2019-10-30] MEDS: XANAX PO SCH (20:46)
[2019-10-30] MEDS: MILK OF MAGNESIA PO SCH (20:46)
[2019-10-30] MEDS: COLACE CAP 100 MG PO SCH (20:47)
[2019-10-31] MEDS ORDERED: PHARMACY COMMENT IV NR (08:30)
[2019-10-31] MEDS: NORCO 5/325 MG TAB PO PRN (09:24)
[2019-10-31] MEDS: VSL#3 PO SCH (09:25)
[2019-10-31] MEDS: SYNTHROID 88 mcg TAB PO SCH (09:26)
[2019-10-31] MEDS: LIPITOR TAB 20 MG PO SCH (09:26)
[2019-10-31] MEDS: ZOLOFT PO SCH (09:26)
[2019-10-31] MEDS: LOPRESSOR TAB 25 MG PO SCH ×2 (09:26→21:24)
[2019-10-31] MEDS ORDERED: NS 1/2 1000 ML IV 1,000 ML IV ONE ×2 (09:38→22:26)
[2019-10-31] MEDS: NS 1/2 1000 ML IV 1,000 ML IV SCH ×2 (09:40→22:31)
[2019-10-31 10:04] LABS: BASOPHILS # (AUTO) 0.1 X10^3/uL (0.0-0.1); BASOPHILS % (AUTO) 0.8 % (0.2-1.0); EOSINOPHILS % (AUTO) 0.2 % (0.9-2.9); HEMATOCRIT 31.3 % (36.0-47.0); HEMOGLOBIN 10.2 g/dL (12.0-16.0); LYMPHOCYTES # (AUTO) 1.1 X10^3/uL (1.3-2.9); LYMPHOCYTES % (AUTO) 8.5 % (21.0-51.0); MEAN CORPUSCULAR HGB CONC 32.8 g/dL (33.0-35.0); MEAN CORPUSCULAR VOLUME 100.8 fL (80.0-100.0); MEAN PLATELET VOLUME 10.6 fL (7.4-11.0); MONOCYTES # (AUTO) 0.8 x10^3/uL (0.3-0.8); MONOCYTES % (AUTO) 5.7 % (0.0-13.0); NEUTROPHILS # (AUTO) 11.3 x10^3/uL (2.2-4.8); NEUTROPHILS % (AUTO) 84.8 % (42.0-75.0); PLATELET COUNT 228 X10^3/uL (150.0-450.0); WHITE BLOOD COUNT 13.3 X10^3/uL (3.6-10.0)
[2019-10-31 10:18] LABS: ALANINE AMINOTRANSFERASE 26 Units/L (12-78); ALBUMIN 1.8 g/dL (3.4-5.0); ALKALINE PHOSPHATASE 176 Units/L (46-116); ASPARTATE AMINO TRANSFERASE 60 Units/L (15-37); BLOOD UREA NITROGEN 31 mg/dL (7-18); CALCIUM 8.1 mg/dL (8.5-10.1); CARBON DIOXIDE 31.7 mmol/L (21-32); CHLORIDE 106 mmol/L (98-107); COR CA(FOR HYPOALB) 9.9 mg/dL (8.5-10.1); COR NA(FOR HYPERGLY) 144 mmol/L (136-145); CREATININE 0.72 mg/dL (0.55-1.02); SODIUM 144 mmol/L (136-145); eGFR NON BLACK RACES > 60 (>60)
[2019-10-31] MEDS: RHINOCORT ALLERGY NASAL SPRAY ENOSTRIL SCH (11:30)
[2019-10-31] MEDS: MILK OF MAGNESIA PO SCH (21:24)
[2019-10-31] MEDS: COLACE CAP 100 MG PO SCH (21:24)
[2019-10-31] MEDS: XANAX PO SCH (21:25)
[2019-11-01 06:19] LABS: BASOPHILS % (AUTO) 0.3 % (0.2-1.0); EOSINOPHILS % (AUTO) 0.2 % (0.9-2.9); HEMATOCRIT 29.6 % (36.0-47.0); HEMOGLOBIN 9.8 g/dL (12.0-16.0); LYMPHOCYTES # (AUTO) 1.2 X10^3/uL (1.3-2.9); LYMPHOCYTES % (AUTO) 9.7 % (21.0-51.0); MEAN CORPUSCULAR HEMOGLOBIN 33.7 pg (27.0-34.0); MEAN CORPUSCULAR VOLUME 102.3 fL (80.0-100.0); MEAN PLATELET VOLUME 11.2 fL (7.4-11.0); MONOCYTES # (AUTO) 0.8 x10^3/uL (0.3-0.8); MONOCYTES % (AUTO) 6.8 % (0.0-13.0); PLATELET COUNT 255 X10^3/uL (150.0-450.0); RED CELL DISTRIBUTION WIDTH 15.8 % (11.6-16.5)
[2019-11-01 06:49] LABS: ALANINE AMINOTRANSFERASE 27 Units/L (12-78); ALBUMIN 1.7 g/dL (3.4-5.0); ALKALINE PHOSPHATASE 167 Units/L (46-116); ASPARTATE AMINO TRANSFERASE 60 Units/L (15-37); BLOOD UREA NITROGEN 30 mg/dL (7-18); CARBON DIOXIDE 28.5 mmol/L (21-32); CHLORIDE 105 mmol/L (98-107); COR CA(FOR HYPOALB) 9.8 mg/dL (8.5-10.1); SODIUM 142 mmol/L (136-145); eGFR NON BLACK RACES > 60 (>60)
[2019-11-01] MEDS: LOPRESSOR TAB 25 MG PO SCH ×2 (08:45→21:47)
[2019-11-01] MEDS: VSL#3 PO SCH (08:45)
[2019-11-01] MEDS: NORCO 5/325 MG TAB PO PRN ×2 (08:46→17:59)
[2019-11-01] MEDS: ZOLOFT PO SCH (08:47)
[2019-11-01] MEDS: SYNTHROID 88 mcg TAB PO SCH (08:47)
[2019-11-01] MEDS: LIPITOR TAB 20 MG PO SCH (08:48)
[2019-11-01] MEDS ORDERED: MILK OF MAGNESIA PO ONE (10:04)
[2019-11-01] MEDS ORDERED: BUTT CREAM (COMPOUND) TOP PRN (10:05)
[2019-11-01] MEDS: LR 1000 ML IV 1,000 ML IV SCH ×2 (10:16→18:31)
[2019-11-01] MEDS: RHINOCORT ALLERGY NASAL SPRAY ENOSTRIL SCH (13:42)
[2019-11-01] MEDS: COLACE CAP 100 MG PO SCH (21:46)
[2019-11-01] MEDS: XANAX PO SCH (21:46)
[2019-11-01] MEDS: MILK OF MAGNESIA PO SCH (21:47)
[2019-11-02] MEDS: LR 1000 ML IV 1,000 ML IV SCH ×2 (01:49→10:36)
[2019-11-02] MEDS: NORCO 5/325 MG TAB PO PRN (01:54)
[2019-11-02 06:50] LABS: BASOPHILS % (AUTO) 0.4 % (0.2-1.0); EOSINOPHILS # (AUTO) 0.1 x10^3/uL (0.0-0.2); EOSINOPHILS % (AUTO) 0.7 % (0.9-2.9); HEMATOCRIT 30.3 % (36.0-47.0); LYMPHOCYTES # (AUTO) 1.2 X10^3/uL (1.3-2.9); LYMPHOCYTES % (AUTO) 13.5 % (21.0-51.0); MEAN CORPUSCULAR HEMOGLOBIN 33.9 pg (27.0-34.0); MEAN CORPUSCULAR VOLUME 102.7 fL (80.0-100.0); MEAN PLATELET VOLUME 10.9 fL (7.4-11.0); MONOCYTES # (AUTO) 0.7 x10^3/uL (0.3-0.8); MONOCYTES % (AUTO) 8.1 % (0.0-13.0); NEUTROPHILS % (AUTO) 77.3 % (42.0-75.0); PLATELET COUNT 290 X10^3/uL (150.0-450.0); RED BLOOD COUNT 2.96 X10^6/uL (3.5-5.4); RED CELL DISTRIBUTION WIDTH 16.2 % (11.6-16.5)
[2019-11-02 07:01] LABS: ALANINE AMINOTRANSFERASE 35 Units/L (12-78); ALBUMIN 1.8 g/dL (3.4-5.0); ALKALINE PHOSPHATASE 187 Units/L (46-116); ASPARTATE AMINO TRANSFERASE 78 Units/L (15-37); BLOOD UREA NITROGEN 28 mg/dL (7-18); CALCIUM 8.2 mg/dL (8.5-10.1); CARBON DIOXIDE 30.1 mmol/L (21-32); CHLORIDE 106 mmol/L (98-107); CREATININE 0.67 mg/dL (0.55-1.02); SODIUM 142 mmol/L (136-145); TOTAL PROTEIN 6.3 g/dL (6.4-8.2); eGFR NON BLACK RACES > 60 (>60)
[2019-11-02] MEDS: VSL#3 PO SCH (08:51)
[2019-11-02] MEDS: SYNTHROID 88 mcg TAB PO SCH (08:52)
[2019-11-02] MEDS: LOPRESSOR TAB 25 MG PO SCH (08:53)
[2019-11-02] MEDS: LIPITOR TAB 20 MG PO SCH (08:53)
[2019-11-02] MEDS: ZOLOFT PO SCH (08:53)
[2019-11-02] MEDS: RHINOCORT ALLERGY NASAL SPRAY ENOSTRIL SCH (09:00)
[2019-11-02 10:36] VITALS: BP 153/92
== END 2019-11-02 11:30 | DRG 872 ==
LOC: MED/SURG 21:10 → ER 21:10 → MED/SURG 10-21 00:45
PROVIDERS: ADMIT Internal Medicine; ATTEND Obstetrics & Gynecology Obstetrics
DX: N18.4 Chronic kidney disease, stage 4 (severe); E87.5 Hyperkalemia; R47.89 Other speech disturbances; Z91.81 History of falling; J32.0 Chronic maxillary sinusitis; R26.89 Other abnormalities of gait and mobility; E87.0 Hyperosmolality and hypernatremia; A41.9 Sepsis, unspecified organism; J32.2 Chronic ethmoidal sinusitis; B96.29 Other Escherichia coli [E. coli] as the cause of diseases classified elsewhere; M51.36 Other intervertebral disc degeneration, lumbar region; N39.0 Urinary tract infection, site not specified; E03.8 Other specified hypothyroidism; F03.90 Unspecified dementia, unspecified severity, without behavioral disturbance, psychotic disturbance, mood disturbance, and anxiety; N17.8 Other acute kidney failure; M54.89 Other dorsalgia; R29.810 Facial weakness; J98.11 Atelectasis; I12.9 Hypertensive chronic kidney disease with stage 1 through stage 4 chronic kidney disease, or unspecified chronic kidney disease; K56.41 Fecal impaction; R94.31 Abnormal electrocardiogram [ECG] [EKG]; R94.4 Abnormal results of kidney function studies
CPT/HCPCS: 36415; 70450; 70551; 71010; 71045; 72128; 72131; 74178; 80048; 80053; 80202; 81001; 82140; 82550; 82553; 82565; 82570; 83735; 84300; 84425; 84484; 85025; 85610; 85730; 87040; 87077; 87086; 87088; 87185; 87186; 87493; 87502; 92507; 92523; 92526; 92610; 93005; 93306; 93880; 94760; 96365; 97110; 97163; 97167; 97530; 97535; 99284; A4222; G0378; J1940; J2185; J3370; J3490; J7030; J7040; J7050; J7060; J7120; S5010

== ENCOUNTER 2019-11-05 11:46 | Inpatient (IN) ==
[2019-11-05] MEDS ORDERED: NS 1000 ML 1,000 ML ONE (11:47)
[2019-11-05 12:04] VITALS: BMI 30.8
--- NOTE | 2019-11-05 12:12 | DR.GIBLEED ---
HPI Time Seen Time Seen by Provider: 11/05/19 12:12 Primary Care Physician Primary Care Physician: ANETA HPI Comment HPI Comment: PATIENT IS 89YR OLD WHITE FEMALE IN ER FROM INTERMEDIATE FOR GI BLEEDING. OVER THE WEEK END, PATIENT HAD EPISODE OF GI BLEED. TODAY ALSO DARK BLOOD AND CLOT NOTED IN THE INTERMEDIATE. SHE IS SWOLLEN AND ABDOMEN DISTENDED. NO FEVER. HAVE NOT PASS URINE FOR SEVERAL HOURS. HAVE WEEPING EDEMA IN LOWER EXTREMITY. PATIENT IS NOT COMMUNICATING WITH ER STAFF. SHE OPEN EYES AND GO BACK TO SLEEP. HISTORY HYPERTENSION, HYPOTHYRIODISM AND ANEMIA. PREVIOUS CVA WELL. Complaints Chief Complaint Doctors Comments: GI BLEEDING. Chief Complaint:: LARGE DARK COLORED CLOT THAT WAS PASSED RECTALLY PER [facility] HOME STAFF. STAFF VOICED THAT RECORDS INDICATED THAT SOMEONE DOCUMENTATED THAT SHE PASSED A LARGE CLOT VAGINALLY DURING THE WEEKEND. STAFF FELT MORE SURE THAT THE CLOT TODAY WAS RECTALLY Reviewed Nurses Notes Reviewed: Yes Source History Provided: Snf Mode of Arrival Mode of Arrival: Stretcher Timing Onset of Chief Complaint: 11/05/19 Duration Bleeding: Currently Present Duration: Days Quality Vomitus: None Stools: DARK CLOTS History Of: GI Bleed Prehospital Care:: None Severity Severity: Moderate Measure: Tablespoons Context Onset: Spontaneous Associated Signs and Symptoms Associated Signs and Symptoms: Abdominal Pain PMH PMH Past Medical History: Yes Past Medical History: Anemia, Anxiety, CVA, Hypertension and Hypothyroidism Past Surgical History: Yes Surgical History: Appendectomy, Cholecystectomy and Hysterectomy Family History History of Family Medical Conditions: Yes Family Medical History: Heart Failure and Hypertension Social History Does any household member use tobacco: No Alcohol Use: None Do you use any recreational Drugs:: No Lives Where: Snf infectious screening In the last 2 months have you had wt loss of >10#?: NO Have you had fever, night sweats or hemotysis?: No Have you traveled outside the country in the last 6 months?: No Isolation: Standard ROS Review of Systems Constitutional: See HPI, Weakness and Fatigue; negative Fever Eyes: See HPI and Other (SEMI RESPONSIVE.) ENTM: See HPI; negative No Symptoms Reported (SEMI RESPONSIVE.), Ear Pain, Nose Discharge, Nose Congestion and Throat Pain Respiratoy: See HPI, Moist Cough, Short of Breath and Wheezing Cardiovascular: See HPI, Edema (GENERALIZED EDEMA.) and Palpitations Gastrointestinal/Abdominal: See HPI, Abdominal Pain and Other (ABDOMINAL DISTENSION.) Genitourinary: See HPI and Other (DECREASE URINE OUTPUT.) Neurological: See HPI and Weakness; negative Headache and Dizziness Musculoskeletal: See HPI and Muscle Pain Integumentary: See HPI and Change in Color Hematologic/Lymphatic: See HPI, Anemia, Easy Bleeding and Easy Bruising Endocrine: See HPI, Increased Urine and Other (SEMI RESPONSIVE.) Psychiatric: See HPI and Other (SEMI RESPONSIVE.) All Other Systems: Reviewed and Negative PE Vital Signs Vitals: Temperature 97 F Pulse Rate 132 Respiratory Rate 35 Blood Pressure [Right Arm] 153/92 Blood Pressure 142/96 O2 Sat by Pulse Oximetry 92 General Limitations: Altered Mental Status General Appearance: Alert and In Distress Head Head Exam: Normal Inspection and Atraumatic Eyes Eye exam: Normal Appearance and PERRL; negative Scleral Icterus and Conjunctival Injection ENT ENT Exam: Normal Exam, Normal Oropharynx, Normal External Ear Exam and TM's No rmal Bilaterally Neck Neck Exam: Normal Inspection and Trachea Midline; negative Tenderness and Lymphadenopathy Chest Chest Inspection: Symmetric Chest Wall Rise; negative Tenderness Respiratory Respiratory Exam: Normal Lung Sounds Bilat and Respiratory Distress; negative Accessory Muscle Use and Chest Wall Tenderness Respiratory Exam: Bilateral: Rhonchi and Lower: Rhonchi Cardiovascular Cardiovascular Exam: Regular Rate, Normal Rhythm, Normal Heart Sounds and Other (GENERALIZED EDEMA.); negative Systolic Murmur and Diastolic Murmur Abdominal Exam Abdominal Exam: Normal Bowel Sounds, Soft, Distention, Tenderness and Other (URINARY BLADDER DISTENSION.) Rectal Rectal Exam: Deferred Extremities Extremities Exam: Normal Capillary Refill and Edema (GENERALIZED EDEMA.); ne gative Calf Tenderness Back Back Exam: Other (SEMI RESPONSIVE.) Neurologic Neurological Exam: Motor Sensory Deficit (SLEEPY, RESPOND TO DEEP CHEST STIMULI.) and Other (SLLE) Psychiatric Psychiatric Exam: Other (SEMI RESPONSIVE.) Skin Skin Exam: Dry DIFFERENTIAL DIAGNOSIS Differential Diagnosis Differential Diagnosis: Bleeding diathesis, Diverticulosis, Inflammatory BD, Meckel's Diverticulum, PUD and Other (ISCHEMIC BOWEL DISEASE.) COURSE Treatment Treatment: SEE ORDERS. SEE NURSING NOTE FOR COMMINICATIONS WITH DRS AND RESPONSE, Consultation Consultation Comments: DR. CORNELL WANT CTA ABDOMEN DONE. REPORT CALLED TO DR. CORNELL. HE WANT PATIENT TRANSFER TO FACILITY WITH VASCULAR SURGEON. DR. CORNELL CALL AND DISCUSS THIS WITH PATIENTS GRAND DAUGHTER OUT OF TOWN. VASCULAR SURGEON BELIEVE PATIENTS XRAY FINDINGS ARE CHRONIC. DR. CORNELL WILL ADMIT PATIENT AND CONSULT DR. ESCOTO FOR GI BLEEDING. Education/Counseling Education/Counseling: Family Educated On: Diagnosis ROR Labs Reviewed Laboratory Results Reviewed?: Yes Result Diagrams: 11/10/19 04:10 11/10/19 04:10 Laboratory: 11/05/19 13:40 Blood Blood Culture - Final Staphylococcus Epidermidis WBC 8.6 X10^3/uL (3.6-10.0) 11/05/19 13:56 RBC 2.66 X10^6/uL (3.5-5.4) L 11/05/19 13:56 Hgb 8.1 g/dL (12.0-16.0) L 11/05/19 22:29 Hct 24.4 % (36.0-47.0) L 11/05/19 22:29 MCV 102.2 fL (80.0-100.0) H 11/05/19 13:56 MCH 33.8 pg (27.0-34.0) 11/05/19 13:56 MCHC 33.0 g/dL (33.0-35.0) 11/05/19 13:56 RDW 16.4 % (11.6-16.5) 11/05/19 13:56 Plt Count 275 X10^3/uL (150.0-450.0) 11/05/19 13:56 MPV 9.4 fL (7.4-11.0) 11/05/19 13:56 Neut % (Auto) 79.5 % (42.0-75.0) H 11/05/19 13:56 Lymph % (Auto) 9.7 % (21.0-51.0) L 11/05/19 13:56 [place] % (Auto) 9.1 % (0.0-13.0) 11/05/19 13:56 Eos % (Auto) 1.2 % (0.9-2.9) 11/05/19 13:56 Baso % (Auto) 0.5 % (0.2-1.0) 11/05/19 13:56 Neut # (Auto) 6.8 x10^3/uL (2.2-4.8) H 11/05/19 13:56 Lymph # (Auto) 0.8 X10^3/uL (1.3-2.9) L 11/05/19 13:56 [place] # (Auto) 0.8 x10^3/uL (0.3-0.8) 11/05/19 13:56 Eos # (Auto) 0.1 x10^3/uL (0.0-0.2) 11/05/19 13:56 Baso # (Auto) 0.0 X10^3/uL (0.0-0.1) 11/05/19 13:56 Absolute Nucleated RBC 0.1 /100WBC 11/05/19 13:56 Sodium 144 mmol/L (136-145) 11/05/19 13:56 Corrected Sodium TNP 11/05/19 13:56 Potassium 4.2 mmol/L (3.5-5.1) 11/05/19 13:56 Chloride 107 mmol/L (98-107) 11/05/19 13:56 Carbon Dioxide 29.7 mmol/L (21-32) 11/05/19 13:56 BUN 25 mg/dL (7-18) H 11/05/19 13:56 Creatinine 0.69 mg/dL (0.55-1.02) 11/05/19 13:56 Est GFR (MDRD) Af Amer > 60 (>60) 11/05/19 13:56 Est GFR (MDRD) Non-Af > 60 (>60) 11/05/19 13:56 Glucose 106 mg/dL (65-99) H 11/05/19 13:56 Lactic Acid 0.9 mmol/L (0.4-2.0) 11/05/19 13:56 Calcium 8.0 mg/dL (8.5-10.1) L 11/05/19 13:56 Corrected Calcium 9.7 mg/dL (8.5-10.1) 11/05/19 13:56 Total Bilirubin 0.70 mg/dL (0.2-1.0) 11/05/19 13:56 AST 49 Units/L (15-37) H 11/05/19 13:56 ALT 26 Units/L (12-78) 11/05/19 13:56 Alkaline Phosphatase 180 Units/L (46-116) H 11/05/19 13:56 Ammonia < 10 umol/L (11-32) L 11/05/19 13:56 C-Reactive Protein 194.80 mg/L (0-3.0) H 11/05/19 13:56 Total Protein 5.7 g/dL (6.4-8.2) L 11/05/19 13:56 Albumin 1.9 g/dL (3.4-5.0) L 11/05/19 13:56 Globulin 3.8 g/dL (2.5-4.5) 11/05/19 13:56 Albumin/Globulin Ratio 0.5 Ratio (1.1-2.1) L 11/05/19 13:56 Specimen Type Catherized urine 11/05/19 13:00 Urine Color Yellow (YELLOW) 11/05/19 13:00 Urine Appearance Slightly hazy (CLEAR) 11/05/19 13:00 Urine pH 5.0 (5.0 - 8.0) 11/05/19 13:00 Ur Specific [place] 1.015 (1.000-1.030) 11/05/19 13:00 Urine Protein 1+ (NEGATIVE) 11/05/19 13:00 Urine Glucose (UA) Negative (NEGATIVE) 11/05/19 13:00 Urine Ketones Negative (NEGATIVE) 11/05/19 13:00 Urine Occult Blood Negative (NEGATIVE) 11/05/19 13:00 Urine Nitrite Negative (NEGATIVE) 11/05/19 13:00 Urine Bilirubin Negative (NEGATIVE) 11/05/19 13:00 Urine Urobilinogen Normal (NORMAL) 11/05/19 13:00 Ur Leukocyte Esterase Negative (NEGATIVE) 11/05/19 13:00 Urine RBC 0-2 /HPF (0-3) 11/05/19 13:00 Urine WBC None seen /HPF (0-5) 11/05/19 13:00 Ur Squamous Epith Cells Rare /HPF (NEGATIVE) 11/05/19 13:00 Urine Bacteria Trace /HPF (NEGATIVE) 11/05/19 13:00 Urine Mucus Few /HPF (NEGATIVE) 11/05/19 13:00 Ur Culture Indicated? No/not indicated 11/05/19 13:00 Stool Description Fob tube 11/05/19 13:00 Stl Occult Blood (IFOB) Positive (NEGATIVE) A 11/05/19 13:00 Blood Type A POSITIVE 11/05/19 13:56 Antibody Screen Negative 11/05/19 13:56 Crossmatch See Detail 11/05/19 13:56 XRAY XRAY Interpreted by: Radiologist XRAY Findings: REPORT NOTED. DISCUSSED WITH DR. CORNELL. Opioid Opioid Risk Tool Age (Emanuel box if 16-45): No History of Preadolescent Sexual Abuse: No Total: 0 Total Score Risk Category: Low Risk Copyright: [facility] predicting aberrant behaviors Diagnosis Discharge Problem: Acute GI bleeding, Generalized edema AMS (altered mental status) Qualifiers: Altered mental status type: transient alteration of awareness Qualified Code(s): R40.4 - Transient alteration of awareness Anemia Qualifiers: Anemia type: other cause Other causes of anemia: other cause, not classified Qualified Code(s): D64.89 - Other specified anemias Instructions Instructions: Colonoscopy, Adult, Care After, [id number]
[2019-11-05 13:09] LABS: BILIRUBIN,URINE NEGATIVE (NEGATIVE); BLOOD/HEMOGLOBIN,URINE NEGATIVE (NEGATIVE); GLUCOSE, URINE NEGATIVE (NEGATIVE); KETONES,URINE NEGATIVE (NEGATIVE); LEUKOCYTE ESTERASE ,URINE NEGATIVE (NEGATIVE); NITRITES,URINE NEGATIVE (NEGATIVE); PROTEIN,URINE 1+ (NEGATIVE); UROBILINOGEN,URINE NORMAL (NORMAL)
[2019-11-05 13:11] LABS: APPEARANCE,URINE SLIGHTLY HAZY (CLEAR); COLOR,URINE YELLOW (YELLOW)
[2019-11-05 13:17] LABS: BACTERIA,URINE TRACE /HPF (NEGATIVE); RBC,URINE 0-2 /HPF (0-3); SQUAMOUS EPITHELIAL CELL,UR RARE /HPF (NEGATIVE)
[2019-11-05 13:18] LABS: MUCUS,URINE FEW /HPF (NEGATIVE)
[2019-11-05] MEDS ORDERED: XYLOCAINE 1 % (PLAIN) ONE (13:47)
[2019-11-05 14:16] LABS: BASOPHILS % (AUTO) 0.5 % (0.2-1.0); EOSINOPHILS # (AUTO) 0.1 x10^3/uL (0.0-0.2); EOSINOPHILS % (AUTO) 1.2 % (0.9-2.9); HEMATOCRIT 27.2 % (36.0-47.0); LYMPHOCYTES # (AUTO) 0.8 X10^3/uL (1.3-2.9); LYMPHOCYTES % (AUTO) 9.7 % (21.0-51.0); MEAN CORPUSCULAR HEMOGLOBIN 33.8 pg (27.0-34.0); MEAN CORPUSCULAR VOLUME 102.2 fL (80.0-100.0); MEAN PLATELET VOLUME 9.4 fL (7.4-11.0); MONOCYTES # (AUTO) 0.8 x10^3/uL (0.3-0.8); MONOCYTES % (AUTO) 9.1 % (0.0-13.0); NEUTROPHILS # (AUTO) 6.8 x10^3/uL (2.2-4.8); NEUTROPHILS % (AUTO) 79.5 % (42.0-75.0); PLATELET COUNT 275 X10^3/uL (150.0-450.0); RED BLOOD COUNT 2.66 X10^6/uL (3.5-5.4); RED CELL DISTRIBUTION WIDTH 16.4 % (11.6-16.5); WHITE BLOOD COUNT 8.6 X10^3/uL (3.6-10.0)
[2019-11-05 14:20] LABS: AMMONIA < 10 umol/L (11-32)
[2019-11-05 14:26] LABS: LACTIC ACID 0.9 mmol/L (0.4-2.0)
[2019-11-05 14:27] LABS: ALANINE AMINOTRANSFERASE 26 Units/L (12-78); ALBUMIN 1.9 g/dL (3.4-5.0); ALKALINE PHOSPHATASE 180 Units/L (46-116); ASPARTATE AMINO TRANSFERASE 49 Units/L (15-37); BLOOD UREA NITROGEN 25 mg/dL (7-18); CARBON DIOXIDE 29.7 mmol/L (21-32); CHLORIDE 107 mmol/L (98-107); COR CA(FOR HYPOALB) 9.7 mg/dL (8.5-10.1); CREATININE 0.69 mg/dL (0.55-1.02); SODIUM 144 mmol/L (136-145); TOTAL PROTEIN 5.7 g/dL (6.4-8.2); eGFR NON BLACK RACES > 60 (>60)
[2019-11-05] MEDS ORDERED: NS 100 ML IV 100 ML IV ONE (15:35)
[2019-11-05] MEDS ORDERED: PROTONIX INJ 40 MG VIAL ONE (15:35)
[2019-11-05] MEDS: PROTONIX INJ 40 MG VIAL 80 MG in NS 100 ML IV 80 ML IV SCH (15:50)
--- NOTE | 2019-11-05 15:58 | RAD ---
HISTORYCentral line placement.[facility]CHEST, [facility]FINDINGSThe trachea is midline. The cardiac silhouette is enlarged. The lungs are clear of consolidation, focal infiltrate, effusion or pneumothorax. There is a new left sided central venous catheter in place, the tip of which projects over the SVC, in close proximity to the expected location of the left brachiocephalic vein. The bony thorax is unremarkable.IMPRESSION1. New left sided central venous catheter in place, the tip of which projects over the junction of the left brachiocephalic vein and SVC.2. Cardiomegaly.Electronically signed by: VY DARBY (Nov 05, 2019 15:57:52)
--- NOTE | 2019-11-05 18:05 | CT ---
HISTORYlarge blood clots rectally ischemic bowelSTUDYCTA, ABDOMEN/PELVIS W WOCOMPARISONCT abdomen pelvis 10/30/2011TECHNIQUEMultiple axial images of the abdomen and pelvis were obtained from the lung bases to the pubic symphysis after administration of IV contrast. Coronal and sagittal 3D MIP reconstructions were performed of the abdominal aorta. Dose reduction techniques including Automated Exposure Control (AEC) and adjustment of mA and kV were utilized.FINDINGSThere are small bibasilar pleural effusions with moderate atelectasis and consolidations posteriorly which is slightly more prominent on the left. 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 There is moderate calcified plaque along both common iliac arteries causing diffuse mild narrowing in the range of 30-40 percent which is more prominent on the left and is unchanged. Both external iliac and common femoral arteries are patent and normal caliber distally. There is no dissection is seen. There is moderate calcified plaque along the origin of the celiac and superior mesenteric arteries which appears be causing high-grade narrowing, especially along the celiac artery which may be greater than 70-80 percent with otherwise good flow distally in both vessels. There is moderate calcified plaque along the origin of both renal arteries which is more severe on the right which is unchanged.The liver and spleen are normal size and density. The gallbladder is mildly enlarged with no wall thickening or gallstones. The pancreas and bile ducts are normal. The drain are normal. The kidneys are normal size and no hydronephrosis, renal stone, or mass is seen. The ureters are normal caliber.There is a Rodriguez catheter in the bladder which is not distended with fluid. There is moderate circumferential wall thickening along the lower rectum extending to the anus which is slightly more prominent with no obvious focal mass. There is mild presacral soft tissue stranding and edema which is less prominent. There are diverticula throughout the sigmoid colon which is changed. No adenopathy or ascites is seen. There is no bowel wall thickening. The appendix is not well visualized with no pericecal inflammation. The uterus has been removed with no adnexal mass or free fluid. There is moderate stranding and edema in the subcutaneous soft tissues along the lateral abdominal farris and extending inferiorly around the lower pelvis anterolaterally around both hips which is increased. 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 which is unchanged with no dissection.Moderate calcified plaque along the origin of the celiac and superior mesenteric arteries which is probably causing high-grade narrowing with good flow distally, recommend clinical follow-upSmall bibasilar pleural effusions and associated bibasilar atelectasis and consolidations posteriorly which is slightly more prominent on the left.Mild hydrops of the gallbladder which is unchanged.No hydronephrosis or renal stones.Questionable mild proctitis which is more apparent with resolving presacral soft tissue edemaModerate diverticulosis of the sigmoid colon which is unchanged no bowel obstruction or obvious colonic inflammationModerate third-spacing of fluid or cellulitis along the abdominal wall extending inferiorly around both hips.Previous hysterectomy and a Rodriguez catheter in the bladder with the bladder not well distended.Electronically signed by: JUAN JESUS (Nov 05, 2019 18:04:33)
[2019-11-05 22:32] LABS: HEMATOCRIT 24.4 % (36.0-47.0); HEMOGLOBIN 8.1 g/dL (12.0-16.0)
[2019-11-06] MEDS ORDERED: NS 1000 ML 1,000 ML ONE (00:15)
[2019-11-06] MEDS: NS 1000 ML 1,000 ML IV SCH ×2 (00:17→13:58)
[2019-11-06] MEDS: PROTONIX INJ 40 MG VIAL 80 MG in NS 100 ML IV 80 ML IV SCH ×4 (01:50→23:21)
[2019-11-06] MEDS: PATIENT'S HOME MEDICATION (Carboxymethylcellulose Sodium [Refresh Tears] 1 DROP) OP SCH ×3 (05:12→23:21)
[2019-11-06] MEDS ORDERED: ASTELIN NASAL SPRAY ENOSTRIL ONE (06:08)
[2019-11-06] MEDS: ASTELIN NASAL SPRAY ENOSTRIL SCH ×3 (06:12→21:00)
[2019-11-06] MEDS: CHRONULAC PO SCH ×3 (08:18→20:56)
[2019-11-06] MEDS: MONOKET or IMDUR PO SCH ×2 (08:19→20:56)
[2019-11-06] MEDS: SYNTHROID 88 mcg TAB PO SCH (08:20)
[2019-11-06 08:29] LABS: BASOPHILS # (AUTO) 0.1 X10^3/uL (0.0-0.1); BASOPHILS % (AUTO) 0.7 % (0.2-1.0); EOSINOPHILS # (AUTO) 0.2 x10^3/uL (0.0-0.2); EOSINOPHILS % (AUTO) 2.2 % (0.9-2.9); HEMATOCRIT 24.9 % (36.0-47.0); HEMOGLOBIN 8.2 g/dL (12.0-16.0); LYMPHOCYTES # (AUTO) 1.1 X10^3/uL (1.3-2.9); LYMPHOCYTES % (AUTO) 14.1 % (21.0-51.0); MEAN CORPUSCULAR HEMOGLOBIN 33.7 pg (27.0-34.0); MEAN CORPUSCULAR HGB CONC 33.1 g/dL (33.0-35.0); MEAN PLATELET VOLUME 8.9 fL (7.4-11.0); MONOCYTES # (AUTO) 0.8 x10^3/uL (0.3-0.8); MONOCYTES % (AUTO) 9.8 % (0.0-13.0); NEUTROPHILS # (AUTO) 5.6 x10^3/uL (2.2-4.8); NEUTROPHILS % (AUTO) 73.2 % (42.0-75.0); PLATELET COUNT 256 X10^3/uL (150.0-450.0); RED BLOOD COUNT 2.44 X10^6/uL (3.5-5.4); RED CELL DISTRIBUTION WIDTH 16.2 % (11.6-16.5); WHITE BLOOD COUNT 7.7 X10^3/uL (3.6-10.0)
[2019-11-06 08:48] LABS: ALANINE AMINOTRANSFERASE 25 Units/L (12-78); ALBUMIN 1.7 g/dL (3.4-5.0); ALKALINE PHOSPHATASE 160 Units/L (46-116); ASPARTATE AMINO TRANSFERASE 43 Units/L (15-37); BLOOD UREA NITROGEN 20 mg/dL (7-18); CALCIUM 7.4 mg/dL (8.5-10.1); CARBON DIOXIDE 32.3 mmol/L (21-32); CHLORIDE 106 mmol/L (98-107); CKMB % 6.7 % (<4); COR CA(FOR HYPOALB) 9.2 mg/dL (8.5-10.1); COR NA(FOR HYPERGLY) 143 mmol/L (136-145); CREATINE KINASE 42 Units/L (26-192); CREATINE KINASE MB 2.8 ng/mL (0-4.0); CREATININE 0.65 mg/dL (0.55-1.02); MAGNESIUM 1.6 mg/dL (1.7-2.9); SODIUM 143 mmol/L (136-145); TOTAL PROTEIN 5.3 g/dL (6.4-8.2); TROPONIN I 0.04 ng/mL (0-1.5); eGFR NON BLACK RACES > 60 (>60)
[2019-11-06] MEDS ORDERED: LACTULOSE PO SCH (09:00)
[2019-11-06] MEDS ORDERED: ISOSORBIDE MONONITRATE 5 MG PO SCH (09:00)
[2019-11-06] MEDS ORDERED: ZOLOFT PO SCH (09:00)
[2019-11-06] MEDS ORDERED: PHARMACY CONSULT LTC MEDICATIONS XX SCH (09:00)
[2019-11-06] MEDS ORDERED: DETROL LA 2 MG CAP EXT REL PO SCH (09:00)
[2019-11-06] MEDS ORDERED: PATIENT'S HOME MEDICATION (Mirabegron [Myrbetriq] 25 MG) PO SCH (09:00)
[2019-11-06] MEDS ORDERED: AQUA-MEPHYTON ADULT INJ SC ONE (09:14)
[2019-11-06] MEDS: ALBUMIN HUMAN 25%- 100 ML 100 ML IV SCH (10:08)
[2019-11-06] MEDS: MAGNESIUM SULFATE 1 GRAM/100 mL PREMIX 2 G/200 ML BAG IV SCH ×2 (10:09→11:49)
[2019-11-06] MEDS: ZOLOFT PO SCH (10:25)
[2019-11-06 17:54] LABS: HEMATOCRIT 29.8 % (36.0-47.0)
[2019-11-06 18:14] LABS: CKMB % 4.3 % (<4); CREATINE KINASE MB 2.1 ng/mL (0-4.0); TROPONIN I 0.04 ng/mL (0-1.5)
[2019-11-07] MEDS: NS 1000 ML 1,000 ML IV SCH ×3 (00:10→20:13)
[2019-11-07] MEDS: ASTELIN NASAL SPRAY ENOSTRIL SCH ×2 (05:06→22:31)
[2019-11-07] MEDS: PATIENT'S HOME MEDICATION (Carboxymethylcellulose Sodium [Refresh Tears] 1 DROP) OP SCH (05:07)
[2019-11-07 05:27] LABS: BASOPHILS % (AUTO) 0.4 % (0.2-1.0); EOSINOPHILS # (AUTO) 0.2 x10^3/uL (0.0-0.2); HEMATOCRIT 31.9 % (36.0-47.0); HEMOGLOBIN 10.7 g/dL (12.0-16.0); LYMPHOCYTES # (AUTO) 0.9 X10^3/uL (1.3-2.9); LYMPHOCYTES % (AUTO) 11.4 % (21.0-51.0); MEAN CORPUSCULAR HEMOGLOBIN 33.8 pg (27.0-34.0); MEAN CORPUSCULAR HGB CONC 33.6 g/dL (33.0-35.0); MEAN CORPUSCULAR VOLUME 100.7 fL (80.0-100.0); MEAN PLATELET VOLUME 9.7 fL (7.4-11.0); MONOCYTES # (AUTO) 0.8 x10^3/uL (0.3-0.8); MONOCYTES % (AUTO) 9.8 % (0.0-13.0); NEUTROPHILS # (AUTO) 5.9 x10^3/uL (2.2-4.8); NEUTROPHILS % (AUTO) 76.4 % (42.0-75.0); PLATELET COUNT 208 X10^3/uL (150.0-450.0); RED BLOOD COUNT 3.17 X10^6/uL (3.5-5.4); WHITE BLOOD COUNT 7.7 X10^3/uL (3.6-10.0)
[2019-11-07 05:32] LABS: ALANINE AMINOTRANSFERASE 26 Units/L (12-78); ALBUMIN 2.2 g/dL (3.4-5.0); ALKALINE PHOSPHATASE 172 Units/L (46-116); ASPARTATE AMINO TRANSFERASE 45 Units/L (15-37); BLOOD UREA NITROGEN 18 mg/dL (7-18); CALCIUM 7.7 mg/dL (8.5-10.1); CARBON DIOXIDE 31.1 mmol/L (21-32); CHLORIDE 106 mmol/L (98-107); COR CA(FOR HYPOALB) 9.1 mg/dL (8.5-10.1); CREATININE 0.65 mg/dL (0.55-1.02); SODIUM 142 mmol/L (136-145); TOTAL PROTEIN 5.9 g/dL (6.4-8.2); eGFR NON BLACK RACES > 60 (>60)
[2019-11-07] MEDS: PROTONIX INJ 40 MG VIAL 80 MG in NS 100 ML IV 80 ML IV SCH ×2 (09:06→23:05)
[2019-11-07] MEDS: ALBUMIN HUMAN 25%- 100 ML 100 ML IV SCH (09:06)
[2019-11-07] MEDS: ZOLOFT PO SCH (09:06)
[2019-11-07] MEDS: SYNTHROID 88 mcg TAB PO SCH (09:06)
[2019-11-07] MEDS: MONOKET or IMDUR PO SCH ×2 (09:07→20:12)
[2019-11-07] MEDS: CHRONULAC PO SCH ×2 (09:07→20:12)
[2019-11-07] MEDS: COREG TAB 12.5 MG PO SCH ×2 (11:43→20:12)
[2019-11-07] MEDS ORDERED: DIPRIVAN VIAL 20 ML ONE (13:25)
[2019-11-07] MEDS ORDERED: NULYTELY or GO-LYTELY PO SCH (14:00)
--- NOTE | 2019-11-07 16:49 | RAD ---
HISTORYNG tube placement.STUDYKUBCOMPARISONNoneFINDINGSNG tube tip is in the body of the stomach and the NG tube obdulia e hole is an the upper body of the stomach in good position. Bowel gas pattern is normal.IMPRESSIONNG tube in good position.Electronically signed by: MIRIAM CAMPO (Nov 07, 2019 16:48:17)
[2019-11-08] MEDS: PROTONIX INJ 40 MG VIAL 80 MG in NS 100 ML IV 80 ML IV SCH ×4 (04:27→18:51)
[2019-11-08] MEDS: NS 1000 ML 1,000 ML IV SCH ×2 (04:28→19:21)
[2019-11-08 05:38] LABS: ALANINE AMINOTRANSFERASE 38 Units/L (12-78); ALBUMIN 2.5 g/dL (3.4-5.0); ALKALINE PHOSPHATASE 410 Units/L (46-116); ASPARTATE AMINO TRANSFERASE 86 Units/L (15-37); BASOPHILS % (AUTO) 0.3 % (0.2-1.0); BLOOD UREA NITROGEN 15 mg/dL (7-18); CALCIUM 7.8 mg/dL (8.5-10.1); CHLORIDE 107 mmol/L (98-107); CREATININE 0.56 mg/dL (0.55-1.02); EOSINOPHILS # (AUTO) 0.1 x10^3/uL (0.0-0.2); EOSINOPHILS % (AUTO) 1.3 % (0.9-2.9); HEMATOCRIT 31.5 % (36.0-47.0); HEMOGLOBIN 10.6 g/dL (12.0-16.0); LYMPHOCYTES # (AUTO) 0.6 X10^3/uL (1.3-2.9); LYMPHOCYTES % (AUTO) 7.7 % (21.0-51.0); MEAN CORPUSCULAR HEMOGLOBIN 34.3 pg (27.0-34.0); MEAN CORPUSCULAR HGB CONC 33.6 g/dL (33.0-35.0); MEAN PLATELET VOLUME 9.5 fL (7.4-11.0); MONOCYTES # (AUTO) 0.5 x10^3/uL (0.3-0.8); MONOCYTES % (AUTO) 6.4 % (0.0-13.0); NEUTROPHILS # (AUTO) 6.1 x10^3/uL (2.2-4.8); NEUTROPHILS % (AUTO) 84.3 % (42.0-75.0); PLATELET COUNT 188 X10^3/uL (150.0-450.0); RED BLOOD COUNT 3.08 X10^6/uL (3.5-5.4); SODIUM 143 mmol/L (136-145); TOTAL PROTEIN 5.7 g/dL (6.4-8.2); WHITE BLOOD COUNT 7.2 X10^3/uL (3.6-10.0); eGFR NON BLACK RACES > 60 (>60)
[2019-11-08] MEDS: ASTELIN NASAL SPRAY ENOSTRIL SCH ×4 (06:13→22:11)
[2019-11-08] MEDS: ALBUMIN HUMAN 25%- 100 ML 100 ML IV SCH (10:34)
[2019-11-08] MEDS ORDERED: DIPRIVAN VIAL 20 ML ONE (10:51)
--- NOTE | 2019-11-08 11:30 | OR.IMMED ---
Immediate Post-Op Note - Immediate Post-Op Note Pre-Op Diagnosis: GI bleeding , anemia Post-Op Diagnosis: extensive diverticulosis , poor prep . no bleeding in the colon . up to about 45 cm , no mucosal abnormalities Procedure: limited colonoscopy to about 45cm . Surgeon/Commercial Artist: Joyce Drains: NONE Complications: none Condition: Stable (to advance diet .repeat lab work)
[2019-11-08] MEDS ORDERED: COLACE SYRUP 100 MG UDC PO ONE (11:44)
[2019-11-08] MEDS ORDERED: CITROMA PO ONE (11:45)
[2019-11-08] MEDS ORDERED: CITROMA ONE (11:53)
[2019-11-08] MEDS ORDERED: COLACE SYRUP 100 MG UDC ONE (11:54)
[2019-11-08] MEDS: CHRONULAC PO SCH ×2 (12:02→20:12)
[2019-11-08] MEDS: COREG TAB 12.5 MG PO SCH ×2 (12:02→20:13)
[2019-11-08] MEDS: ZOLOFT PO SCH (12:03)
[2019-11-08] MEDS: SYNTHROID 88 mcg TAB PO SCH (12:03)
[2019-11-08] MEDS: MONOKET or IMDUR PO SCH ×2 (12:03→20:13)
[2019-11-09] MEDS: NS 1000 ML 1,000 ML IV SCH ×3 (00:59→20:15)
[2019-11-09] MEDS ORDERED: BUTT CREAM (COMPOUND) TOP PRN (01:09)
[2019-11-09] MEDS: PROTONIX INJ 40 MG VIAL 80 MG in NS 100 ML IV 80 ML IV SCH ×3 (05:20→20:15)
[2019-11-09] MEDS: ASTELIN NASAL SPRAY ENOSTRIL SCH ×3 (05:21→21:10)
[2019-11-09 06:15] LABS: BASOPHILS % (AUTO) 0.2 % (0.2-1.0); EOSINOPHILS # (AUTO) 0.1 x10^3/uL (0.0-0.2); EOSINOPHILS % (AUTO) 1.6 % (0.9-2.9); HEMATOCRIT 29.1 % (36.0-47.0); HEMOGLOBIN 9.7 g/dL (12.0-16.0); LYMPHOCYTES # (AUTO) 0.6 X10^3/uL (1.3-2.9); LYMPHOCYTES % (AUTO) 7.5 % (21.0-51.0); MEAN CORPUSCULAR HEMOGLOBIN 33.5 pg (27.0-34.0); MEAN CORPUSCULAR HGB CONC 33.3 g/dL (33.0-35.0); MEAN CORPUSCULAR VOLUME 100.6 fL (80.0-100.0); MEAN PLATELET VOLUME 9.2 fL (7.4-11.0); MONOCYTES # (AUTO) 0.5 x10^3/uL (0.3-0.8); MONOCYTES % (AUTO) 6.9 % (0.0-13.0); NEUTROPHILS # (AUTO) 6.4 x10^3/uL (2.2-4.8); NEUTROPHILS % (AUTO) 83.8 % (42.0-75.0); PLATELET COUNT 181 X10^3/uL (150.0-450.0); RED CELL DISTRIBUTION WIDTH 16.7 % (11.6-16.5); WHITE BLOOD COUNT 7.6 X10^3/uL (3.6-10.0)
[2019-11-09 06:29] LABS: ALANINE AMINOTRANSFERASE 30 Units/L (12-78); ALBUMIN 2.5 g/dL (3.4-5.0); ALKALINE PHOSPHATASE 315 Units/L (46-116); ASPARTATE AMINO TRANSFERASE 52 Units/L (15-37); BLOOD UREA NITROGEN 14 mg/dL (7-18); CALCIUM 7.8 mg/dL (8.5-10.1); CARBON DIOXIDE 28.6 mmol/L (21-32); CHLORIDE 109 mmol/L (98-107); COR NA(FOR HYPERGLY) 143 mmol/L (136-145); CREATININE 0.54 mg/dL (0.55-1.02); SODIUM 143 mmol/L (136-145); TOTAL PROTEIN 5.4 g/dL (6.4-8.2); eGFR NON BLACK RACES > 60 (>60)
[2019-11-09] MEDS: ZOLOFT PO SCH ×2 (09:13→09:14)
[2019-11-09] MEDS: CHRONULAC PO SCH ×3 (09:13→21:09)
[2019-11-09] MEDS: SYNTHROID 88 mcg TAB PO SCH (09:15)
[2019-11-09] MEDS: ALBUMIN HUMAN 25%- 100 ML 100 ML IV SCH (09:15)
[2019-11-09] MEDS: COREG TAB 12.5 MG PO SCH ×2 (09:21→21:09)
[2019-11-09] MEDS: MONOKET or IMDUR PO SCH ×2 (09:21→21:10)
[2019-11-10] MEDS: NS 1000 ML 1,000 ML IV SCH (03:09)
[2019-11-10] MEDS: PROTONIX INJ 40 MG VIAL 80 MG in NS 100 ML IV 80 ML IV SCH ×2 (04:32→05:59)
[2019-11-10 05:12] LABS: BASOPHILS % (AUTO) 0.2 % (0.2-1.0); EOSINOPHILS # (AUTO) 0.2 x10^3/uL (0.0-0.2); EOSINOPHILS % (AUTO) 2.4 % (0.9-2.9); HEMATOCRIT 29.2 % (36.0-47.0); HEMOGLOBIN 9.7 g/dL (12.0-16.0); LYMPHOCYTES # (AUTO) 0.7 X10^3/uL (1.3-2.9); LYMPHOCYTES % (AUTO) 10.9 % (21.0-51.0); MEAN CORPUSCULAR HEMOGLOBIN 33.8 pg (27.0-34.0); MEAN CORPUSCULAR HGB CONC 33.1 g/dL (33.0-35.0); MEAN CORPUSCULAR VOLUME 102.1 fL (80.0-100.0); MEAN PLATELET VOLUME 9.7 fL (7.4-11.0); MONOCYTES # (AUTO) 0.6 x10^3/uL (0.3-0.8); MONOCYTES % (AUTO) 8.2 % (0.0-13.0); NEUTROPHILS # (AUTO) 5.3 x10^3/uL (2.2-4.8); NEUTROPHILS % (AUTO) 78.3 % (42.0-75.0); PLATELET COUNT 174 X10^3/uL (150.0-450.0); RED BLOOD COUNT 2.85 X10^6/uL (3.5-5.4); RED CELL DISTRIBUTION WIDTH 16.9 % (11.6-16.5); WHITE BLOOD COUNT 6.8 X10^3/uL (3.6-10.0)
[2019-11-10 05:30] LABS: ALANINE AMINOTRANSFERASE 31 Units/L (12-78); ALBUMIN 2.7 g/dL (3.4-5.0); ALKALINE PHOSPHATASE 365 Units/L (46-116); ASPARTATE AMINO TRANSFERASE 54 Units/L (15-37); BLOOD UREA NITROGEN 13 mg/dL (7-18); CALCIUM 7.9 mg/dL (8.5-10.1); CARBON DIOXIDE 28.1 mmol/L (21-32); CHLORIDE 109 mmol/L (98-107); COR CA(FOR HYPOALB) 8.9 mg/dL (8.5-10.1); SODIUM 145 mmol/L (136-145); TOTAL PROTEIN 5.5 g/dL (6.4-8.2); eGFR NON BLACK RACES > 60 (>60)
[2019-11-10] MEDS: ASTELIN NASAL SPRAY ENOSTRIL SCH (05:47)
[2019-11-10] MEDS: ALBUMIN HUMAN 25%- 100 ML 100 ML IV SCH (08:42)
[2019-11-10] MEDS: MAGNESIUM SULFATE 1 GRAM/100 mL PREMIX 2 G/200 ML BAG IV SCH ×2 (10:19→11:08)
[2019-11-10] MEDS: COREG TAB 12.5 MG PO SCH (10:20)
[2019-11-10] MEDS: CHRONULAC PO SCH (10:20)
[2019-11-10] MEDS: ZOLOFT PO SCH (10:21)
[2019-11-10] MEDS: MONOKET or IMDUR PO SCH (10:22)
[2019-11-10] MEDS: SYNTHROID 88 mcg TAB PO SCH (10:22)
[2019-11-10] MEDS ORDERED: K-RIDER 10 MEQ/NS 100 ML 10 MEQ/100 ML BAG IV PRN (10:23)
[2019-11-10] MEDS ORDERED: MICRO K EXTEN CAP 10 MEQ PO PRN (10:23)
[2019-11-10] MEDS ORDERED: KLOR-CON PO PRN (10:23)
[2019-11-10] MEDS ORDERED: K-DUR TAB 20 MEQ PO PRN (10:23)
[2019-11-10] MEDS ORDERED: POTASSIUM CHL 40 MEQ/NS 0.45% 500 ML IV PRN (10:23)
[2019-11-10] MEDS ORDERED: POTASSIUM CHL 60 MEQ/NS 0.45% 500 ML IV PRN (10:23)
[2019-11-10] MEDS ORDERED: POTASSIUM CHLORIDE LIQ 20 MEQ UDC PO PRN (10:23)
[2019-11-10 14:12] VITALS: BP 147/67
== END 2019-11-10 14:30 | DRG 378 ==
LOC: ICU 11:46 → ER 11:46 → OBSVTOIN 22:58 → ICU 11-06 01:00
PROVIDERS: ADMIT Obstetrics & Gynecology Obstetrics; ATTEND Obstetrics & Gynecology Obstetrics
DX: I10 Essential (primary) hypertension; X58.XXXA Exposure to other specified factors, initial encounter; S20.101A Unspecified superficial injuries of breast, right breast, initial encounter; L89.152 Pressure ulcer of sacral region, stage 2; K31.1 Adult hypertrophic pyloric stenosis; R41.82 Altered mental status, unspecified; E03.8 Other specified hypothyroidism; R60.0 Localized edema; K92.1 Melena; B95.7 Other staphylococcus as the cause of diseases classified elsewhere; K57.30 Diverticulosis of large intestine without perforation or abscess without bleeding
CPT/HCPCS: 36415; 36430; 36556; 51702; 71010; 71045; 74000; 74018; 74174; 76000; 80053; 81001; 82140; 82270; 82550; 82553; 83605; 83735; 84484; 85014; 85018; 85025; 85610; 85730; 86140; 86850; 86900; 86901; 86922; 87040; 87076; 87077; 87186; 93005; 96365; 96367; 99100; 99285; A4222; C9113; P9016; P9047; J2704; J3430; J3475; J7030; J7050